=== PATIENT | female | born 1965 | race Caucasian/White ===

== ENCOUNTER 2018-04-22 10:58 | Inpatient (IN) | payer OTHER ==
[2018-04-22 11:54] VITALS: BMI 29.1
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
[2018-04-22] MEDS ORDERED: MENTHOL/PHENOL 1 EACH UD MM PRN (13:21)
[2018-04-22] MEDS ORDERED: MAGNESIUM CITRATE 300 ML BOTTLE PO PRN (13:21)
[2018-04-22] MEDS ORDERED: IBUPROFEN 400 MG TABLET (FP) PO PRN (13:21)
[2018-04-22] MEDS ORDERED: P-EPHED 60MG/TRIPROLIDI 2.5MG TABLET PO PRN (13:21)
[2018-04-22] MEDS ORDERED: ACETAMINOPHEN 325 MG TABLET (FP) PO PRN (13:21)
[2018-04-22] MEDS ORDERED: MAGNESIUM HYDROX 2400MG/30ML ORAL SUSPENSION 30 ML CUP PO PRN (13:21)
[2018-04-22] MEDS ORDERED: guaiFENesin/D-METHORPHAN HB 10 ML UNIT-DOSE CUPS PO PRN (13:21)
[2018-04-22] MEDS ORDERED: MAG HYDROX/AL HYDROX/SIMETH 30 ML UNIT-DOSE CUP PO PRN (13:21)
[2018-04-22] MEDS ORDERED: LOPERAMIDE HCL 2 MG CAPSULE PO PRN (13:21)
[2018-04-22] MEDS ORDERED: METHADONE HCL 10 MG TABLET (FOR DETOX USE ONLY) PO ONE ×2 (14:00→23:00)
--- NOTE | 2018-04-22 14:01 | CONSULT ---
[facility] Psychiatric Consult - Data Date of interview: 04/22/18 Admission source: [facility] Identifying data: This is a 52 years old female, single mother of three, unemployed, homeless, on SSD/SSI, with heroin,cocaine,and marijuana dependence, seeking detox,reporting withdrawal symptoms, this is first detox in her past medical history Substance Abuse History: THC-Marijuana, DAO-Cocaine, OPI-Opiates, OXY-Oxycodone , FEN-Fentanyl. Smoking history: Current every day smoker. Have you smoked in the past 12 months: Yes. Aproximately how many cigarettes per day: 20. Hx Chewing Tobacco Use: No. Initiated information on smoking cessation: Yes. ' Breaking Loose' booklet given: 04/22/18. - Substance & Tx. History. Hx Alcohol Use: No. Hx Substance Use: Yes. Substance Use Type: Cocaine, Heroin, Marijuana. Hx Substance Use Treatment: No. - Substances Abused. Cocaine. Route: Inhalation. Frequency: Daily. Amount used: $20-40. Age of first use: 31. Date of Last Use: 04/20/18. Marijuana/Hashish. Route: Smoking. Frequency: 3-6 times per week. Amount used: $20. Age of first use: 19. Date of Last Use: 04/20/18. Heroin. Route: Inhalation. Frequency: Daily. Amount used: 15 bags. Age of first use: 44. Date of Last Use: 04/21/18 Medical History: LBP, Left ankle fracture history, s/p rotator cuff history, Asthma Psychiatric History: Patient reports history of Bipolar disorder, reports no psychiatric hospitalization history, REPORTS TAKING PRIOR TO ADMISSION: Ambien 10mg po qhs. Flexeril 10mg po tid Physical/Sexual Abuse/Trauma History: Denies Additional Comment: THC-Marijuana, DAO-Cocaine, OPI-Opiates, OXY-Oxycodone, FEN- Fentanyl. Ambien 10mg po qhs. Flexeril 10mg po tid Mental Status Exam - Mental Status Exam Alert and Oriented to: Person Cognitive Function: Fair Patient Appearance: Well Groomed Mood: Anxious Affect: Labile Patient Behavior: Guarded, Talkative Speech Pattern: Appropriate Voice Loudness: Moderately Loud Thought Process: Goal Oriented Thought Disorder: Being Controlled Hallucinations: Denies Suicidal Ideation: Denies Homicidal Ideation: Denies Insight/Judgement: Fair Sleep: Difficulty falling asleep Appetite: Weight gain Muscle strength/Tone: Normal Gait/Station: Normal Additional Comments: Ambien 10mg po qhs. Flexeril 10mg po tid Psychiatric Findings - Problem List ([place] 1, 2,3) (1) Asthma Current Visit: Yes Status: Acute (2) Bipolar disorder Current Visit: Yes Status: Acute (3) Cannabis dependence Current Visit: Yes Status: Acute (4) Cocaine dependence Current Visit: Yes Status: Acute (5) H/O rotator cuff surgery Current Visit: Yes Status: Acute (6) History of fracture of left ankle Current Visit: Yes Status: Acute (7) Insomnia Current Visit: Yes Status: Acute (8) Low back pain Current Visit: Yes Status: Acute (9) Nicotine dependence Current Visit: Yes Status: Acute (10) Opioid dependence with withdrawal Current Visit: Yes Status: Acute - Initial Treatment Plan Initial Treatment Plan: Ambien 10mg po qhs. Flexeril 10mg po tid
--- NOTE | 2018-04-22 15:37 | EKG ---
Test Reason : Blood Pressure : / mmHG Vent. Rate : 064 BPM Atrial Rate : 064 BPM P-R Int : 140 ms QRS Dur : 084 ms QT Int : 434 ms P-R-T Axes : 018 064 032 degrees QTc Int : 447 ms NORMAL SINUS RHYTHM WITH SINUS ARRHYTHMIA NORMAL ECG NO PREVIOUS ECGS AVAILABLE Confirmed by SATHISH LUI MD ([id number]) on 04/22/2018 3:36:55 PM Referred By: Confirmed By:SATHISH LUI MD
[2018-04-22] MEDS: diazePAM 5 MG TABLET PO PRN ×2 (15:38→21:20)
[2018-04-22] MEDS: NICOTINE 21 MG/24 HOURS TOPICAL PATCH TD SCH (15:39)
[2018-04-22] MEDS ORDERED: diphenhydrAMINE HCL 25 MG CAPSULE (FP) PO PRN (16:00)
[2018-04-22] MEDS: hydrOXYzine PAMOATE 25 MG CAPSULE (FP) PO PRN (17:28)
[2018-04-22] MEDS: HALOPERIDOL 1 MG TABLET (FP) PO PRN ×2 (17:28→21:20)
[2018-04-22] MEDS: THIAMINE HCL 100 MG TABLET (FP) PO SCH (21:20)
[2018-04-22] MEDS: ZOLPIDEM TARTRATE 10 MG TABLET (PARK CARE ONLY) PO PRN (21:21)
[2018-04-22] MEDS: CYCLOBENZAPRINE HCL 10 MG TABLET (FP) PO PRN (21:21)
[2018-04-22] MEDS ORDERED: MELATONIN 5 MG TABLETS PO PRN (22:00)
[2018-04-22] MEDS ORDERED: CYCLOBENZAPRINE HCL 5 MG TABLET PO SCH (22:00)
[2018-04-23] MEDS: CYCLOBENZAPRINE HCL 10 MG TABLET (FP) PO PRN ×2 (08:38→21:57)
[2018-04-23] MEDS: diazePAM 5 MG TABLET PO PRN ×2 (08:38→18:29)
[2018-04-23] MEDS: hydrOXYzine PAMOATE 25 MG CAPSULE (FP) PO PRN ×3 (08:39→21:58)
[2018-04-23] MEDS: HALOPERIDOL 1 MG TABLET (FP) PO PRN ×3 (08:39→21:58)
--- NOTE | 2018-04-23 09:46 | PN ---
[facility] COWS - Scale Resting Pulse: 0= [place] 80 or Below Sweatin=Flushed/Facial Moisture Restless Observation: 1= Difficult to Sit Still Pupil Size: 0= Normal to Room Light Bone or Joint Aches: 2= Severe Diffuse Aches Runny Nose/ Eye Tearin= Nasal Congestion GI Upset > 30mins: 2= Nausea/Diarrhea Tremor Observation of Outstretched Hands: 2= Slight Tremor Visible Yawning Observation: 1= 1-2x During Session Anxiety or Irritability: 2=Irritable/Anxious Goose Flesh Skin: 3=Piloerection COWS Score: 16 [facility] Progress Note (SOAP) Subjective: shakes sweats agitation diarrhea body aches irritable Objective: 04/23/18 09:46 Vital Signs Temperature 96.1 F L 04/23/18 07:09 Pulse Rate 56 L 04/23/18 07:09 Respiratory Rate 18 04/23/18 07:09 Blood Pressure 124/62 04/23/18 07:09 O2 Sat by Pulse Oximetry (%) Laboratory Tests 04/22/18 13:30 HIV 1&2 Antibody Screen Negative HIV P24 Antigen Negative rest of labs pending aaox3 ambulating no acute distress Assessment: 04/23/18 09:46 withdrawal sx Plan: continue detox increase fluids immodium prn labs pending
[2018-04-23] MEDS ORDERED: METHADONE HCL 10 MG TABLET (FOR DETOX USE ONLY) PO ONE (10:00)
[2018-04-23] MEDS ORDERED: PRENATAL VITAMINS W/ FOLIC ACID TABLET (FP) PO SCH (10:00)
[2018-04-23] MEDS: NICOTINE 21 MG/24 HOURS TOPICAL PATCH TD SCH (10:43)
[2018-04-23 11:11] LABS: HEMATOCRIT 45.3 % (32.4-45.2); HEMOGLOBIN 14.7 GM/dL (10.7-15.3); MCH 28.7 pg (25.7-33.7); MCHC 32.4 g/dl (32.0-36.0); MEAN CELL VOLUME 88.6 fl (80-96); MEAN PLT VOLUME 9.1 fl (7.5-11.1); PLATELET COUNT 190 K/MM3 (134-434); RBC 5.11 M/mm3 (3.60-5.2); RDW 13.8 % (11.6-15.6)
[2018-04-23 11:30] LABS: ALBUMIN 3.5 g/dl (3.4-5.0); ALK PHOS 94 U/L (45-117); ANION GAP 5 MMOL/L (8-16); BILIRUBIN,TOTAL 0.5 mg/dL (0.2-1); BLOOD UREA NITROGEN 22 mg/dL (7-18); CALCIUM 8.7 mg/dL (8.5-10.1); CHLORIDE 106 mmol/L (98-107); CO2 28 mmol/L (21-32); CREATININE 0.8 mg/dL (0.55-1.3); GLUCOSE,RANDOM 155 mg/dL (74-106); POTASSIUM 4.6 mmol/L (3.5-5.1); SGOT/AST 21 U/L (15-37); SGPT/ALT 18 U/L (13-61); SODIUM 139 mmol/L (136-145); TOT PROT 7.3 g/dl (6.4-8.2)
[2018-04-23] MEDS: ZOLPIDEM TARTRATE 10 MG TABLET (PARK CARE ONLY) PO PRN (21:57)
[2018-04-23] MEDS: THIAMINE HCL 100 MG TABLET (FP) PO SCH (21:57)
[2018-04-24] MEDS: diazePAM 5 MG TABLET PO PRN (07:07)
[2018-04-24 07:26] VITALS: BP 137/85; PULSE 65; TEMP 96.8
--- NOTE | 2018-04-24 08:17 | PN ---
GEN Progress Note Note: patient did not want to complete treatment,decline to give the reason,all attempts to convince patient to stay with no avail, risk of withdrawal and relapse explain to patient and she understood,advise to go to emergency room if medical emergency, patient signed release rainer
--- NOTE | 2018-04-24 08:18 | DS ---
[facility] Detox Discharge Summary Admission Date: 04/22/18 Discharge Date: 04/24/18 - History Present History: Cannabis Dependence, Cocaine Dependence, Opioid Dependence Additional Comments: patient did not want to complete treatment,declined to give reason,all attempts to convince patient to stay with no avail, risk of withdrawal and relapse explain to patient and understood,advise to go to emergency room if medical emergency, patient signed release ama,advise diet modification for elevation of glucose, and follow up with patient medical provider Pertinent Past History: low back pain asthma bipolar disorder insomnia old fx of left ankle - Physical Exam Results Vital Signs: Vital Signs Temperature 96.8 F L 04/24/18 07:25 Pulse Rate 65 04/24/18 07:25 Respiratory Rate 18 04/24/18 07:25 Blood Pressure 137/85 04/24/18 07:25 O2 Sat by Pulse Oximetry (%) Pertinent Admission Physical Exam Findings: withdrawal signs and symptom Laboratory Last Values WBC 9.0 K/mm3 (4.0-10.0) 04/23/18 06:00 RBC 5.11 M/mm3 (3.60-5.2) 04/23/18 06:00 Hgb 14.7 GM/dL (10.7-15.3) 04/23/18 06:00 Hct 45.3 % (32.4-45.2) H 04/23/18 06:00 MCV 88.6 fl (80-96) 04/23/18 06:00 MCH 28.7 pg (25.7-33.7) 04/23/18 06:00 MCHC 32.4 g/dl (32.0-36.0) 04/23/18 06:00 RDW 13.8 % (11.6-15.6) 04/23/18 06:00 Plt Count 190 K/MM3 (134-434) 04/23/18 06:00 MPV 9.1 fl (7.5-11.1) 04/23/18 06:00 Sodium 139 mmol/L (136-145) 04/23/18 06:00 Potassium 4.6 mmol/L (3.5-5.1) 04/23/18 06:00 Chloride 106 mmol/L (98-107) 04/23/18 06:00 Carbon Dioxide 28 mmol/L (21-32) 04/23/18 06:00 Anion Gap 5 MMOL/L (8-16) L 04/23/18 06:00 BUN 22 mg/dL (7-18) H 04/23/18 06:00 Creatinine 0.8 mg/dL (0.55-1.3) 04/23/18 06:00 Creat Clearance w eGFR > 60 (>60) 04/23/18 06:00 Random Glucose 155 mg/dL (74-106) H 04/23/18 06:00 Calcium 8.7 mg/dL (8.5-10.1) 04/23/18 06:00 Total Bilirubin 0.5 mg/dL (0.2-1) 04/23/18 06:00 AST 21 U/L (15-37) 04/23/18 06:00 ALT 18 U/L (13-61) 04/23/18 06:00 Alkaline Phosphatase 94 U/L (45-117) 04/23/18 06:00 Total Protein 7.3 g/dl (6.4-8.2) 04/23/18 06:00 Albumin 3.5 g/dl (3.4-5.0) 04/23/18 06:00 RPR Titer Nonreactive (NONREACTIVE) 04/23/18 06:00 HIV 1&2 Antibody Screen Negative 04/22/18 13:30 HIV P24 Antigen Negative 04/22/18 13:30 - Medication Discharge Medications: Ambulatory Orders Cyclobenzaprine HCl [Flexeril -] 10 mg PO TID PRN #60 tablet 04/22/18 Cyclobenzaprine HCl [Flexeril 10 mg] 10 mg PO TID 04/22/18 Diazepam [Valium] 10 mg PO TID 04/22/18 Zolpidem Tartrate [Ambien] 10 mg PO HS 04/22/18 - Diagnosis (1) Opioid dependence with withdrawal Current Visit: Yes Status: Acute (2) Cocaine dependence Current Visit: Yes Status: Acute (3) Cannabis dependence Current Visit: Yes Status: Acute (4) Low back pain Current Visit: Yes Status: Acute (5) Bipolar disorder Current Visit: Yes Status: Acute (6) Insomnia Current Visit: Yes Status: Acute (7) History of fracture of left ankle Current Visit: Yes Status: Acute (8) H/O rotator cuff surgery Current Visit: Yes Status: Acute (9) Asthma Current Visit: Yes Status: Acute - AMA Did Patient Leave Against Medical Advice: Yes
[2018-04-24] MEDS ORDERED: METHADONE HCL 5 MG TABLET (FOR DETOX USE ONLY) PO ONE (10:00)
[2018-04-25] MEDS ORDERED: METHADONE HCL 5 MG TABLET (FOR DETOX USE ONLY) PO ONE (10:00)
[2018-04-26] MEDS ORDERED: METHADONE HCL 10 MG TABLET (FOR DETOX USE ONLY) PO ONE (10:00)
[2018-04-27] MEDS ORDERED: METHADONE HCL 5 MG TABLET (FOR DETOX USE ONLY) PO ONE (06:00)
== END 2018-04-24 08:25 | disposition left against medical advice (07) | DRG 770 ==
LOC: YASAS 10:58 → Y6N 13:10
PROC: HZ2ZZZZ Detoxification Services for Substance Abuse Treatment (ICD-10-PCS; principal; 2018-04-22)
DX: F11.23 Opioid dependence with withdrawal (principal); F14.20 Cocaine dependence, uncomplicated; F12.20 Cannabis dependence, uncomplicated; F17.210 Nicotine dependence, cigarettes, uncomplicated; F31.9 Bipolar disorder, unspecified; M54.5 Low back pain; G47.00 Insomnia, unspecified; J45.909 Unspecified asthma, uncomplicated; R73.9 Hyperglycemia, unspecified
CPT/HCPCS: 36415; 80053; 81003; 85027; 86593; 87389; 93005; 93010

== ENCOUNTER 2018-06-13 08:04 | Inpatient (IN) | payer OTHER ==
[2018-06-13 08:51] VITALS: BMI 32.2
--- NOTE | 2018-06-13 09:30 | HP ---
COWS - Scale Resting Pulse: 1= [place] 81-100 Sweatin= Chills/Flushing Restless Observation: 1= Difficult to Sit Still Pupil Size: 1= Pupils >than Normal Bone or Joint Aches: 2= Severe Diffuse Aches Runny Nose/ Eye Tearin= Runny Nose/Eyes GI Upset > 30mins: 2= Nausea/Diarrhea Tremor Observation: 2= Slight Tremor Visible Yawning Observation: 1= 1-2x During Session Anxiety or Irritability: 2=Irritable/Anxious Goose Flesh Skin: 0=Smooth Skin COWS Score: 15 CIWA Score Nausea/Vomitin Muscle Tremors: 2 Anxiety: 2 Agitation: 2 Paroxysmal Sweats: 1-Minimal Palms Moist Orientation: 0-Oriented Tacttile Disturbances: 1-Very Mild Itch/Numbness Auditory Disturbances: 1-Very Mild Visual Disturbances: 0-None Headache: 2-Mild CIWA-Ar Total Score: 13 - Admission Criteria [facility] Guidelines: Admission for Medically Managed Detox: Requires at least one of the followin. CIWA greater than 12 2. Seizures within the past 24 hours 3. Delirium tremens within the past 24 hours 4. Hallucinations within the past 24 hours 5. Acute intervention needed for co occurring medical disorder 6. Acute intervention needed for co occurring psychiatric disorder 7. Severe withdrawal that cannot be handled at a lower level of care (continued vomiting, continued diarrhea, abnormal vital signs) requiring intravenous medication and/or fluids 8. Patient presents the following: CIWA greater than 12 Admission Criteria Met: Admission criteria met Admission ROS [facility] - [facility] Chief Complaint: i need help to stop using heroin,alcohol,cocaine and marijuana Allergies/Adverse Reactions: Allergies Allergy/AdvReac Type Severity Reaction Status Date / Time No Known Allergies Allergy Verified 06/13/18 08:47 History of Present Illness: this 52 years old female with heroin ,alcohol,cocaine and marijuana dependence, seeking detox,withdrawal symptom,last detox 04/22/18 to 04/24/18 not completed arthritis both knees,hips edema both legs for 5 days nicotine dependence no significant period of sobriety bipolar disorder ,insomnia history of asthma Exam Limitations: No Limitations - Ebola screening Have you traveled outside of the country in the last 21 days: No Have you had contact with anyone from an Ebola affected area: No Have you been sick,other than usual withdrawal symptoms: No Do you have a fever: No - Review of Systems Constitutional: Chills, Loss of Appetite, Malaise, Night Sweats, Changes in sleep, Weakness EENT: reports: Tearing, Nose Congestion Respiratory: reports: No Symptoms reported Cardiac: reports: No Symptoms Reported GI: reports: Diarrhea, Nausea, Abdominal cramping : reports: No Symptoms Reported Musculoskeletal: reports: Back Pain, Muscle Pain Integumentary: reports: Dryness Neuro: reports: Headache, Tremors Endocrine: reports: No Symptoms Reported Hematology: reports: No Symptoms Reported Psychiatric: reports: No Sypmtoms Reported, Judgement Intact, Mood/Affect Appropiate, Orientated x3, other (bipolar disoder) Patient History - Patient Medical History Hx Anemia: No Hx Asthma: Yes (on albuterol inhaler in the past) Hx Chronic Obstructive Pulmonary Disease (COPD): No Hx Cancer: No Hx Cardiac Disorders: No Hx Congestive Heart Failure: No Hx Hypertension: No Hx Hypercholesterolemia: No Hx Pacemaker: No HX Cerebrovascular Accident: No Hx Seizures: No Hx Dementia: No Hx Diabetes: No Hx Gastrointestinal Disorders: Yes (Acid reflux takes baking sode) Hx Liver Disease: No Hx Genitourinary Disorders: No Hx Sexually Transmitted Disorders: No Hx Renal Disease (ESRD): No Hx Thyroid Disease: No Hx Human Immunodeficiency Virus (HIV): No (last 2016 negative) Hx Hepatitis C: No Hx Depression: Yes (anxiety,insomnia) Hx Suicide Attempt: No Hx Bipolar Disorder: Yes Hx Schizophrenia: No Other Medical History: no suicidal,no suicidal - Patient Surgical History Past Surgical History: Yes Hx Neurologic Surgery: No Hx Cataract Extraction: No Hx Cardiac Surgery: No Hx Lung Surgery: No Hx Breast Surgery: No Hx Breast Biopsy: No Hx Abdominal Surgery: No Hx Appendectomy: No Hx Cholecystectomy: No Hx Genitourinary Surgery: No Hx Section: No Hx Orthopedic Surgery: Yes (L shoulder sx in 2014 L ankle sx in 2010) Anesthesia Reaction: No - PPD History Previous Implant?: Yes Documented Results: Negative w/proof Implanted On Prior R Admission?: Yes Date: 04/24/18 Results: not reading PPD to be Administered?: Yes - Reproductive History Last Menstrual Period: 05/16/11 Patient : No - Smoking Cessation Smoking history: Current every day smoker Have you smoked in the past 12 months: Yes Aproximately how many cigarettes per day: 20 Hx Chewing Tobacco Use: No Initiated information on smoking cessation: Yes 'Breaking Loose' booklet given: 06/17/18 - Substances Abused Heroin Route: Inhalation Frequency: Daily Amount used: 1 BUNDLE Age of first use: 22 Date of Last Use: 06/12/18 Crack Route: Smoking Frequency: Daily Amount used: $60-$70 Age of first use: 27 Date of Last Use: 06/12/18 Alcohol Route: Oral Amount used: 6 12OZ BOTTLES OF BEER Age of first use: 19 Date of Last Use: 06/10/18 MARIJUANA Route: Smoking Frequency: Daily Amount used: $10 Age of first use: 19 Date of Last Use: 06/06/18 Family Disease History - Family Disease History Family Disease History: Other: Father (alcohol), Mother (alcohol) Admission Physical Exam S - Vital Signs Vital Signs: Vital Signs - 24 hr 06/13/18 06/13/18 08:43 08:48 Temperature 97.8 F 97.8 F Pulse Rate 81 81 Respiratory 18 18 Rate Blood Pressure 122/83 122/83 - Physical General Appearance: Yes: Moderate Distress, Tremorous, Irritable, Sweating, Anxious HEENTM: Yes: Normal ENT Inspection, MARIBEL, Pharynx Normal Respiratory: Yes: Lungs Clear, Normal Breath Sounds, No Respiratory Distress Neck: Yes: Within Normal Limits, Supple, Trachea in good position Breast: Yes: Breast Exam Deferred Cardiology: Yes: Within Normal Limits, Regular Rhythm, Regular Rate, S1, S2 Abdominal: Yes: Within Normal Limits, Normal Bowel Sounds, Non Tender, Soft Genitourinary: Yes: Within Normal Limits Back: Yes: Muscle Spasm Musculoskeletal: Yes: Back pain, Muscle Pain Extremities: Yes: Tremors, Other (edema both legs) Neurological: Yes: laser cutter II-XII NML intact, Fully Oriented, Alert, Motor Strength 5/5 Integumentary: Yes: Dry Lymphatic: Yes: Within Normal Limits - Diagnostic (1) Opioid dependence with withdrawal Status: Acute (2) Alcohol dependence with uncomplicated withdrawal Status: Acute (3) Asthma Status: Chronic Qualifiers: Asthma severity: mild Asthma persistence: unspecified Asthma complication type: uncomplicated Qualified Code(s): J45.909 - Unspecified asthma, uncomplicated (4) Bipolar disorder Status: Chronic (5) Cannabis dependence Status: Acute (6) Cocaine dependence Status: Acute Qualifiers: Substance use status: uncomplicated Qualified Code(s): F14.20 - Cocaine dependence, uncomplicated (7) H/O rotator cuff surgery Status: Acute (8) History of fracture of left ankle Status: Acute (9) Edema of both legs Status: Acute Cleared for Admission [facility] - Detox or Rehab [facility] Level of Care: Medically Managed Detox Regimen/Protocol: Methadone/Librium [facility] Breath Alcohol Content Breath Alcohol Content: 0 Urine Pregancy Test - Result Urine Test Results: Negative- NO Line Present Urine Drug Screen - Results Drug Screen Negative: No Urine Drug Screen Results: DAO-Cocaine, OPI-Opiates, BAR-Barbiturates, BZO- Benzodiazepines, MTD-Methadone, OXY-Oxycodone, FEN-Fentanyl
[2018-06-13] MEDS ORDERED: MAGNESIUM HYDROX 2400MG/30ML ORAL SUSPENSION 30 ML CUP PO PRN (09:46)
[2018-06-13] MEDS ORDERED: chlordiazePOXIDE HCL 25 MG CAPSULE PO PRN (09:46)
[2018-06-13] MEDS ORDERED: NICOTINE POLACRILEX 2 MG GUM BUC PRN (09:46)
[2018-06-13] MEDS ORDERED: MAG HYDROX/AL HYDROX/SIMETH 30 ML UNIT-DOSE CUP PO PRN (09:46)
[2018-06-13] MEDS ORDERED: MAGNESIUM CITRATE 300 ML BOTTLE PO PRN (09:46)
[2018-06-13] MEDS ORDERED: guaiFENesin/D-METHORPHAN HB 10 ML UNIT-DOSE CUPS PO PRN (09:46)
[2018-06-13] MEDS ORDERED: LOPERAMIDE HCL 2 MG CAPSULE PO PRN (09:46)
[2018-06-13] MEDS ORDERED: P-EPHED 60MG/TRIPROLIDI 2.5MG TABLET PO PRN (09:46)
[2018-06-13] MEDS ORDERED: MENTHOL/PHENOL 1 EACH UD MM PRN (09:46)
[2018-06-13] MEDS ORDERED: ACETAMINOPHEN 325 MG TABLET (FP) PO PRN (09:46)
[2018-06-13] MEDS ORDERED: METHADONE HCL 10 MG TABLET (FOR DETOX USE ONLY) PO ONE ×2 (10:50→23:00)
[2018-06-13] MEDS: chlordiazePOXIDE HCL 25 MG CAPSULE PO SCH ×3 (11:21→22:42)
[2018-06-13] MEDS: FUROSEMIDE 40 MG TABLET (FP) PO SCH (11:21)
[2018-06-13] MEDS: NICOTINE 21 MG/24 HOURS TOPICAL PATCH TD SCH (11:21)
[2018-06-13] MEDS: PRENATAL VITAMINS W/ FOLIC ACID TABLET (FP) PO SCH (11:23)
--- NOTE | 2018-06-13 15:55 | CONSULT ---
[facility] Psychiatric Consult - Data Date of interview: 06/13/18 Admission source: [facility] Identifying data: Patient is a 52 year old single female, mother of three, unemployed, homeless, and is supported by [facility]. [facility]. Patient admitted to for alcohol, cocaine, opiate, and marijuana dependence. Substance Abuse History: Smoking Cessation. Smoking history: Current every day smoker. Have you smoked in the past 12 months: Yes. Aproximately how many cigarettes per day: 20. Hx Chewing Tobacco Use: No. - Substances Abused. Heroin. Route: Inhalation. Frequency: Daily. Amount used: 1 BUNDLE. Age of first use: 22. Date of Last Use: 06/12/18. Crack. Route: Smoking. Frequency: Daily. Amount used: $60-$70. Age of first use: 27. Date of Last Use: 06/12/18. Alcohol. Route: Oral. Amount used: 6 12OZ BOTTLES OF BEER. Age of first use: 19. Date of Last Use: 06/10/18. MARIJUANA. Route: Smoking. Frequency: Daily. Amount used: $10. Age of first use: 19. Date of Last Use: 06/06/18 Medical History: Asthma, acid reflux, L shoulder sx in 2014 L ankle sx in 2010 Psychiatric History: Patient denies h/o psychiatric hospitalizations. She reports an unclear history of outpatient psychiatric care "years ago." Reports h /o accepting vistaril, valium and remeron. States she last took psychotropic medications 1-2 years ago. She denies h/o suicide attempt. Physical/Sexual Abuse/Trauma History: denies. Mental Status Exam - Mental Status Exam Alert and Oriented to: Time, Place, Person Cognitive Function: Good Patient Appearance: Well Groomed Mood: Euthymic Affect: Mood Congruent Patient Behavior: Fatigued, Cooperative Speech Pattern: Appropriate Voice Loudness: Moderately Soft/Quiet Thought Process: Intact, Goal Oriented Thought Disorder: Not Present Hallucinations: Denies Suicidal Ideation: Denies Homicidal Ideation: Denies Insight/Judgement: Poor Sleep: Fair Appetite: Fair Muscle strength/Tone: Normal Gait/Station: Normal Psychiatric Findings - Problem List (Leslie 1, 2,3) (1) Substance induced mood disorder Current Visit: Yes Status: Suspected (2) Alcohol dependence with uncomplicated withdrawal Current Visit: Yes Status: Acute (3) Cocaine dependence Current Visit: Yes Status: Chronic (4) Opioid dependence with withdrawal Current Visit: Yes Status: Acute - Initial Treatment Plan Initial Treatment Plan: Psychoeducation provided. Detoxification in progress. Pt. made aware of melatonin 5mg. Observation.
[2018-06-13 18:44] LABS: URINE APPEARANCE SLCLOUDY; URINE BILIRUBIN NEGATIVE (<2.0 mg/dL); URINE COLOR AMBER; URINE GLUCOSE (UA) NEGATIVE (NEGATIVE); URINE KETONE NEGATIVE (NEGATIVE); URINE LEUK ESTERASE 1+ (NEGATIVE); URINE NITRITE POSITIVE (NEGATIVE); URINE PROTEIN 1+ (NEGATIVE); URINE UROBILINOGEN NEGATIVE mg/dL (0.2-1.0)
[2018-06-13 19:05] LABS: CALCIUM OXALATE CRYSTALS FEW /hpf (NONE SEEN); EPI CELLS RARE /HPF (FEW); URINE BACTERIA MANY /hpf (NONE SEEN); URINE MUCUS FEW
[2018-06-13 19:08] LABS: AMORP URATES 1+ /hpf (NONE SEEN)
[2018-06-13] MEDS: THIAMINE HCL 100 MG TABLET (FP) PO SCH (22:42)
[2018-06-13] MEDS: MELATONIN 5 MG TABLETS PO PRN (22:44)
[2018-06-14] MEDS: chlordiazePOXIDE HCL 25 MG CAPSULE PO SCH ×4 (05:51→22:18)
[2018-06-14] MEDS ORDERED: METHADONE HCL 10 MG TABLET (FOR DETOX USE ONLY) PO SCH (10:00)
[2018-06-14 10:25] LABS: HEMATOCRIT 40.4 % (32.4-45.2); HEMOGLOBIN 13.9 GM/dL (10.7-15.3); MCH 30.3 pg (25.7-33.7); MCHC 34.5 g/dl (32.0-36.0); MEAN CELL VOLUME 87.8 fl (80-96); MEAN PLT VOLUME 8.8 fl (7.5-11.1); PLATELET COUNT 252 K/MM3 (134-434); RDW 13.7 % (11.6-15.6); WHITE BLOOD COUNT 8.2 K/mm3 (4.0-10.0)
[2018-06-14] MEDS: NICOTINE 21 MG/24 HOURS TOPICAL PATCH TD SCH (10:29)
[2018-06-14] MEDS: PRENATAL VITAMINS W/ FOLIC ACID TABLET (FP) PO SCH (10:30)
[2018-06-14] MEDS: FUROSEMIDE 40 MG TABLET (FP) PO SCH (10:31)
[2018-06-14 11:04] LABS: ALBUMIN 3.4 g/dl (3.4-5.0); ALK PHOS 92 U/L (45-117); ANION GAP 8 MMOL/L (8-16); BILIRUBIN,TOTAL 0.2 mg/dL (0.2-1); BLOOD UREA NITROGEN 17 mg/dL (7-18); CHLORIDE 109 mmol/L (98-107); CO2 26 mmol/L (21-32); CREATININE 0.7 mg/dL (0.55-1.3); GLUCOSE,RANDOM 80 mg/dL (74-106); SGOT/AST 20 U/L (15-37); SGPT/ALT 25 U/L (13-61); SODIUM 143 mmol/L (136-145); TOT PROT 7.1 g/dl (6.4-8.2)
[2018-06-14] MEDS: IBUPROFEN 400 MG TABLET (FP) PO PRN (11:59)
[2018-06-14] MEDS ORDERED: PNEUMOCOCCAL 23 VACCINE 0.5 ML VIAL IM ONE (12:00)
[2018-06-14] MEDS ORDERED: PNEUMOC 13-VAL CONJ-DIP CRM/PF 0.5 ML DISP.SYRIN IM ONE (12:00)
[2018-06-14] MEDS: hydrOXYzine PAMOATE 50 MG CAPSULE (FP) PO PRN (12:15)
[2018-06-14] MEDS: CYCLOBENZAPRINE HCL 10 MG TABLET (FP) PO PRN ×2 (12:15→22:18)
--- NOTE | 2018-06-14 15:56 | PN ---
S CIWA - CIWA Score Nausea/Vomitin Muscle Tremors: 4-Moderate,w/Arms Extend Anxiety: 4-Mod. Anxious/Guarded Agitation: 2 Paroxysmal Sweats: 3 Orientation: 0-Oriented Tacttile Disturbances: 1-Very Mild Itch/Numbness Auditory Disturbances: 0-None Visual Disturbances: 0-None Headache: 1-Very Mild CIWA-Ar Total Score: 17 BHS COWS - Scale Resting Pulse: 0= [place] 80 or Below Sweatin= Chills/Flushing Restless Observation: 3= Extraneous Movement Pupil Size: 0= Normal to Room Light Bone or Joint Aches: 2= Severe Diffuse Aches Runny Nose/ Eye Tearin= Runny Nose/Eyes GI Upset > 30mins: 3= Vomiting/Diarrhea Tremor Observation of Outstretched Hands: 2= Slight Tremor Visible Yawning Observation: 0= None Anxiety or Irritability: 2=Irritable/Anxious Goose Flesh Skin: 0=Smooth Skin COWS Score: 15 S Progress Note (SOAP) Subjective: Tremor, chills, sweating, nausea, interrupted sleep, back pain (chronic), agitated Objective: 06/14/18 15:52 Last Vital Signs Temp Pulse Resp BP Pulse Ox 98.4 F 80 16 123/79 06/14/18 14:13 06/14/18 14:13 06/14/18 14:13 06/14/18 14:13 Laboratory Tests 06/13/18 06/14/18 06/14/18 17:30 05:55 05:55 WBC 8.2 RBC 4.60 Hgb 13.9 Hct 40.4 MCV 87.8 MCH 30.3 MCHC 34.5 RDW 13.7 Plt Count 252 D MPV 8.8 Sodium 143 Potassium 4.0 Chloride 109 H Carbon Dioxide 26 Anion Gap 8 BUN 17 Creatinine 0.7 Creat Clearance w eGFR > 60 Random Glucose 80 Calcium 9.0 Total Bilirubin 0.2 AST 20 ALT 25 Alkaline Phosphatase 92 Total Protein 7.1 Albumin 3.4 Urine Color [place] Urine Appearance Slcloudy Urine pH 5.0 Ur Specific [place] 1.027 Urine Protein 1+ H Urine Glucose (UA) Negative Urine Ketones Negative Urine Blood 1+ H Urine Nitrite Positive Urine Bilirubin Negative Urine Urobilinogen Negative Ur Leukocyte Esterase 1+ H Urine WBC (Auto) 1 Urine RBC (Auto) <1 Ur Epithelial Cells Rare Calcium Oxalate Crystal Few Amorphous Urates 1+ Urine Bacteria Many Urine Mucus Few Labs reviewed: UTI noted Assessment: 06/14/18 15:54 Withdrawal symptoms Noted with acute UTI Plan: Continue detox Acute UTI: encouraged PO water intake, send urine C&S, start levaquin 500mg PO daily x 3 days
[2018-06-14] MEDS: THIAMINE HCL 100 MG TABLET (FP) PO SCH (22:18)
[2018-06-14] MEDS: MELATONIN 5 MG TABLETS PO PRN (22:18)
[2018-06-15] MEDS: IBUPROFEN 400 MG TABLET (FP) PO PRN ×2 (02:40→10:38)
[2018-06-15] MEDS: hydrOXYzine PAMOATE 50 MG CAPSULE (FP) PO PRN (02:40)
[2018-06-15] MEDS ORDERED: LIDOCAINE 5% TOPICAL PATCH TP SCH (06:00)
[2018-06-15] MEDS: chlordiazePOXIDE HCL 25 MG CAPSULE PO SCH (07:36)
[2018-06-15] MEDS: CYCLOBENZAPRINE HCL 10 MG TABLET (FP) PO PRN (07:47)
[2018-06-15 07:54] VITALS: TEMP 97.9
[2018-06-15 09:53] VITALS: BP 123/76; PULSE 70
[2018-06-15] MEDS ORDERED: METHADONE HCL 5 MG TABLET (FOR DETOX USE ONLY) PO SCH (10:00)
[2018-06-15] MEDS: PRENATAL VITAMINS W/ FOLIC ACID TABLET (FP) PO SCH (10:33)
[2018-06-15] MEDS: FUROSEMIDE 40 MG TABLET (FP) PO SCH (10:34)
[2018-06-15] MEDS: NICOTINE 21 MG/24 HOURS TOPICAL PATCH TD SCH (10:35)
[2018-06-15] MEDS ORDERED: IBUPROFEN 600 MG TABLET (FP) PO PRN (10:50)
[2018-06-15] MEDS ORDERED: chlordiazePOXIDE 5 MG CAPSULE PO SCH (11:00)
[2018-06-15] MEDS ORDERED: CYCLOBENZAPRINE HCL 10 MG TABLET (FP) PO SCH (11:00)
--- NOTE | 2018-06-15 14:52 | PN ---
BHS Progress Note Note: PT REPORTS TO NURSE SHE NO LONGER WANTS TO CONTINUE WITH DETOX. PT GOT AGITATED AND CURSING OUT AND WANTS TO LEAVE(PLEASE SEE NURSE'S NOTES). ALL EFFORTS TO ENCOURAGE PT TO STAY WAS UNSUCCESSFUL. Vital Signs 06/15/18 06/15/18 07:54 09:53 Temperature 97.9 F 97.9 F Pulse Rate 69 70 Respiratory 18 18 Rate Blood Pressure 122/76 123/76
--- NOTE | 2018-06-15 14:53 | DS ---
[facility] Detox Discharge Summary Admission Date: 06/13/18 Discharge Date: 06/15/18 - History Present History: Alcohol Dependence, Cannabis Dependence, Cocaine Dependence Additional Comments: PT SIGNED OUT AMA. Pertinent Past History: PLEASE SEE DX BELOW - Physical Exam Results Vital Signs: Vital Signs Temperature 97.9 F 06/15/18 09:53 Pulse Rate 70 06/15/18 09:53 Respiratory Rate 18 06/15/18 09:53 Blood Pressure 123/76 06/15/18 09:53 O2 Sat by Pulse Oximetry (%) Pertinent Admission Physical Exam Findings: WITHDRAWAL SX Laboratory Tests 06/13/18 06/14/18 06/14/18 17:30 05:55 05:55 WBC 8.2 RBC 4.60 Hgb 13.9 Hct 40.4 MCV 87.8 MCH 30.3 MCHC 34.5 RDW 13.7 Plt Count 252 D MPV 8.8 Sodium 143 Potassium 4.0 Chloride 109 H Carbon Dioxide 26 Anion Gap 8 BUN 17 Creatinine 0.7 Creat Clearance w eGFR > 60 Random Glucose 80 Calcium 9.0 Total Bilirubin 0.2 AST 20 ALT 25 Alkaline Phosphatase 92 Total Protein 7.1 Albumin 3.4 Urine Color [place] Urine Appearance Slcloudy Urine pH 5.0 Ur Specific [place] 1.027 Urine Protein 1+ H Urine Glucose (UA) Negative Urine Ketones Negative Urine Blood 1+ H Urine Nitrite Positive Urine Bilirubin Negative Urine Urobilinogen Negative Ur Leukocyte Esterase 1+ H Urine WBC (Auto) 1 Urine RBC (Auto) <1 Ur Epithelial Cells Rare Calcium Oxalate Crystal Few Amorphous Urates 1+ Urine Bacteria Many Urine Mucus Few RPR Titer 06/14/18 05:55 WBC RBC Hgb Hct MCV MCH MCHC RDW Plt Count MPV Sodium Potassium Chloride Carbon Dioxide Anion Gap BUN Creatinine Creat Clearance w eGFR Random Glucose Calcium Total Bilirubin AST ALT Alkaline Phosphatase Total Protein Albumin Urine Color Urine Appearance Urine pH Ur Specific [place] Urine Protein Urine Glucose (UA) Urine Ketones Urine Blood Urine Nitrite Urine Bilirubin Urine Urobilinogen Ur Leukocyte Esterase Urine WBC (Auto) Urine RBC (Auto) Ur Epithelial Cells Calcium Oxalate Crystal Amorphous Urates Urine Bacteria Urine Mucus RPR Titer Nonreactive - Treatment Hospital Course: Discharged Condition Good - Medication Discharge Medications: Ambulatory Orders Cyclobenzaprine HCl [Flexeril -] 10 mg PO TID PRN #60 tablet 04/22/18 Cyclobenzaprine HCl [Flexeril 10 mg] 10 mg PO TID 04/22/18 Diazepam [Valium] 10 mg PO TID 04/22/18 Zolpidem Tartrate [Ambien] 10 mg PO HS 04/22/18 levoFLOXacin [Levaquin -] 500 mg PO DAILY@0600 #5 tablet 06/15/18 - Diagnosis (1) Alcohol dependence with uncomplicated withdrawal Status: Acute (2) Opioid dependence with withdrawal Status: Acute (3) Asthma Status: Chronic Qualifiers: Asthma severity: mild Asthma persistence: unspecified Asthma complication type: uncomplicated Qualified Code(s): J45.909 - Unspecified asthma, uncomplicated (4) Cannabis dependence Status: Acute (5) Cocaine dependence Status: Acute Qualifiers: Substance use status: uncomplicated Qualified Code(s): F14.20 - Cocaine dependence, uncomplicated (6) Nicotine dependence Status: Chronic Qualifiers: Nicotine product type: cigarettes Substance use status: in withdrawal Qualified Code(s): F17.213 - Nicotine dependence, cigarettes, with withdrawal (7) Edema of both legs Status: Acute (8) History of fracture of left ankle Status: Acute (9) UTI (urinary tract infection) Status: Acute Qualifiers: Encounter type: subsequent encounter (10) GERD (gastroesophageal reflux disease) Status: Chronic Qualifiers: Esophagitis presence: esophagitis presence not specified Qualified Code(s) : K21.9 - Gastro-esophageal reflux disease without esophagitis - AMA Did Patient Leave Against Medical Advice: Yes
[2018-06-15] MEDS ORDERED: LIDOCAINE PATCH REMOVAL MC SCH (18:00)
[2018-06-16] MEDS ORDERED: chlordiazePOXIDE HCL 10 MG CAPSULE PO SCH (11:00)
[2018-06-17] MEDS ORDERED: METHADONE HCL 10 MG TABLET (FOR DETOX USE ONLY) PO SCH (10:00)
[2018-06-18] MEDS ORDERED: METHADONE HCL 5 MG TABLET (FOR DETOX USE ONLY) PO SCH (06:00)
== END 2018-06-15 11:02 | disposition left against medical advice (07) | DRG 770 ==
LOC: YASAS 08:04 → Y3N 10:21
PROC: HZ2ZZZZ Detoxification Services for Substance Abuse Treatment (ICD-10-PCS; principal; 2018-06-13)
DX: F11.23 Opioid dependence with withdrawal (principal); F10.230 Alcohol dependence with withdrawal, uncomplicated; F14.20 Cocaine dependence, uncomplicated; F12.20 Cannabis dependence, uncomplicated; F17.210 Nicotine dependence, cigarettes, uncomplicated; F31.9 Bipolar disorder, unspecified; F42.9 Obsessive-compulsive disorder, unspecified; F19.24 Other psychoactive substance dependence with psychoactive substance-induced mood disorder; N39.0 Urinary tract infection, site not specified; K21.9 Gastro-esophageal reflux disease without esophagitis; J45.909 Unspecified asthma, uncomplicated; G47.00 Insomnia, unspecified; R60.0 Localized edema; Z87.81 Personal history of (healed) traumatic fracture; Z98.890 Other specified postprocedural states
CPT/HCPCS: 36415; 80053; 81003; 81015; 85027; 86593; 90732; G0009

== ENCOUNTER 2018-11-10 10:28 | Inpatient (IN) | payer OTHER ==
[2018-11-10 12:31] VITALS: BMI 31.9
--- NOTE | 2018-11-10 15:22 | HP ---
COWS - Scale Resting Pulse: 0= [place] 80 or Below Sweatin= Chills/Flushing Restless Observation: 3= Extraneous Movement Pupil Size: 1= Pupils >than Normal Bone or Joint Aches: 2= Severe Diffuse Aches Runny Nose/ Eye Tearin= Runny Nose/Eyes GI Upset > 30mins: 2= Nausea/Diarrhea Tremor Observation: 2= Slight Tremor Visible Yawning Observation: 2= >3x During Session Anxiety or Irritability: 2=Irritable/Anxious Goose Flesh Skin: 0=Smooth Skin COWS Score: 17 CIWA Score - Admission Criteria [facility] Guidelines: Admission for Medically Managed Detox: Requires at least one of the followin. CIWA greater than 12 2. Seizures within the past 24 hours 3. Delirium tremens within the past 24 hours 4. Hallucinations within the past 24 hours 5. Acute intervention needed for co occurring medical disorder 6. Acute intervention needed for co occurring psychiatric disorder 7. Severe withdrawal that cannot be handled at a lower level of care (continued vomiting, continued diarrhea, abnormal vital signs) requiring intravenous medication and/or fluids 8. Admission ROS [facility] Chief Complaint: i need help to stop using heroin,cocaine and marijuana Allergies/Adverse Reactions: Allergies Allergy/AdvReac Type Severity Reaction Status Date / Time No Known Allergies Allergy Verified 11/10/18 12:11 History of Present Illness: this 53 years old female with heroin,cocaine and marijuana dependence,seeking detox,withdrawal symptom has previous admissions before,last [facility] 06/13/18 to 07/16/17 nicotine dependence 1/2 pack/day longest period of sobriety 5 years may go to rehab after detox gerd asthma Exam Limitations: No Limitations - Ebola screening Have you traveled outside of the country in the last 21 days: No (N) Have you had contact with anyone from an Ebola affected area: No Do you have a fever: No - Review of Systems Constitutional: Chills, Loss of Appetite, Night Sweats, Changes in sleep, Unintentional Wgt. Loss EENT: reports: Tearing, Nose Congestion Respiratory: reports: No Symptoms reported Cardiac: reports: No Symptoms Reported, Palpitations GI: reports: Diarrhea, Nausea, Vomiting : reports: No Symptoms Reported Musculoskeletal: reports: Back Pain, Joint Pain, Muscle Pain, Neck Pain Integumentary: reports: Dryness Neuro: reports: No Symptoms reported, Tremors Endocrine: reports: No Symptoms Reported Hematology: reports: No Symptoms Reported Psychiatric: reports: No Sypmtoms Reported, Judgement Intact, Mood/Affect Appropiate, Orientated x3 Other Systems: Reviewed and Negative Patient History - Patient Medical History Hx Anemia: No Hx Asthma: Yes (on albuterol inhaler in the past) Hx Chronic Obstructive Pulmonary Disease (COPD): No Hx Cancer: No Hx Cardiac Disorders: No Hx Congestive Heart Failure: No Hx Hypertension: No Hx Hypercholesterolemia: No Hx Pacemaker: No HX Cerebrovascular Accident: No Hx Seizures: No Hx Dementia: No Hx Diabetes: No Hx Gastrointestinal Disorders: Yes (Acid reflux) Hx Liver Disease: No Hx Genitourinary Disorders: No Hx Sexually Transmitted Disorders: No Hx Renal Disease (ESRD): No Hx Thyroid Disease: No Hx Human Immunodeficiency Virus (HIV): No (last 2018 negative) Hx Hepatitis C: No Hx Depression: Yes Hx Suicide Attempt: No Hx Bipolar Disorder: Yes (no med,does not want to see psychiatrist) Hx Schizophrenia: No Other Medical History: no suicidal,no homicidal - Patient Surgical History Past Surgical History: Yes Hx Neurologic Surgery: No Hx Cataract Extraction: No Hx Cardiac Surgery: No Hx Lung Surgery: No Hx Breast Surgery: No Hx Breast Biopsy: No Hx Abdominal Surgery: No Hx Appendectomy: No Hx Cholecystectomy: No Hx Genitourinary Surgery: No Hx Section: No Hx Orthopedic Surgery: Yes (L shoulder sx in 2014 L ankle sx in 2010) Anesthesia Reaction: No - PPD History Previous Implant?: Yes Documented Results: Negative w/o proof Date: 04/24/18 Results: not reading PPD to be Administered?: Yes - Reproductive History Patient is a Female of Child Bearing Age (11 -55 yrs old): Yes Last Menstrual Period: 05/16/11 Patient : No - Smoking Cessation Smoking history: Current every day smoker Have you smoked in the past 12 months: Yes Aproximately how many cigarettes per day: 10 Hx Chewing Tobacco Use: No Initiated information on smoking cessation: Yes 'Breaking Loose' booklet given: 11/10/18 - Substance & Tx. History Hx Alcohol Use: No Hx Substance Use: Yes Substance Use Type: Cocaine, Heroin, Marijuana Hx Substance Use Treatment: Yes ([facility] 06/13/18 to 06/15/18) - Substances abused Heroin Substance route: Inhalation Frequency: Daily Amount used: 3 BUNDLES Age of first use: 44 Date of last use: 11/09/18 Cocaine Substance route: Inhalation Frequency: 3-6 times per week Amount used: 1 GRAM Age of first use: 26 Date of last use: 11/09/18 Marijuana/Hashish Substance route: Smoking Frequency: Daily Amount used: 4-5 BLUNTS Age of first use: 19 Date of last use: 11/10/18 Family Disease History - Family Disease History Family Disease History: Other: Father (alcohol), Mother (alcohol) Admission Physical Exam [facility] - Vital Signs Vital Signs: Vital Signs - 24 hr 11/10/18 11/10/18 12:13 13:13 Temperature 97.3 F L 97.3 F L Pulse Rate 76 76 Respiratory 20 20 Rate Blood Pressure 136/86 136/86 - Physical General Appearance: Yes: Moderate Distress, Tremorous, Irritable, Sweating, Anxious HEENTM: Yes: Normal ENT Inspection, MARIBEL, Pharynx Normal Respiratory: Yes: Lungs Clear, Normal Breath Sounds, No Respiratory Distress Neck: Yes: Within Normal Limits, Supple, Trachea in good position Breast: Yes: Breast Exam Deferred Cardiology: Yes: Within Normal Limits, Regular Rhythm, Regular Rate, S1, S2 Abdominal: Yes: Within Normal Limits, Normal Bowel Sounds, Non Tender, Flat Genitourinary: Yes: Within Normal Limits Back: Yes: Normal Inspection, Muscle Spasm Musculoskeletal: Yes: Back pain, Joint Stiffness, Muscle Pain Extremities: Yes: Tremors Neurological: Yes: plumbing foreman II-XII NML intact, Fully Oriented, Alert, Motor Strength 5/5 Integumentary: Yes: Dry Lymphatic: Yes: Within Normal Limits - Diagnostic (1) Opioid dependence with withdrawal Current Visit: No Status: Acute (2) Cannabis dependence Current Visit: No Status: Acute (3) Cocaine dependence Current Visit: No Status: Acute Qualifiers: Substance use status: uncomplicated Qualified Code(s): F14.20 - Cocaine dependence, uncomplicated (4) H/O rotator cuff surgery Current Visit: No Status: Acute (5) History of fracture of left ankle Current Visit: No Status: Acute (6) Low back pain Current Visit: No Status: Acute (7) Asthma Current Visit: No Status: Chronic Qualifiers: Asthma severity: mild Asthma persistence: unspecified Asthma complication type: uncomplicated Qualified Code(s): J45.909 - Unspecified asthma, uncomplicated (8) Bipolar disorder Current Visit: No Status: Chronic (9) Nicotine dependence Current Visit: No Status: Chronic Qualifiers: Nicotine product type: cigarettes Substance use status: in withdrawal Qualified Code(s): F17.213 - Nicotine dependence, cigarettes, with withdrawal Cleared for Admission S - Detox or Rehab [facility] Level of Care: Medically Managed Detox Regimen/Protocol: Methadone Breathalyzer - Breathalyzer Breathalyzer: 0 POC Urine test - Test device test lot number: [id number] Expiration date: 04/14/20 - Control test control: Yes - Result Urine Test Results: Negative - NO line present Urine Drug Screen - Test Device Lot number: [id number] Expiration date: 06/14/20 - Control Is test valid?: Yes - Results Drug screen NEGATIVE: No Urine drug screen results: THC-Marijuana, DAO-Cocaine, FEN-Fentanyl, MOP-Opiates Inpatient Rehab Admission - Rehab Decision to Admit Inpatient rehab admission?: No
[2018-11-10] MEDS ORDERED: MENTHOL/PHENOL 1 EACH UD MM PRN (15:32)
[2018-11-10] MEDS ORDERED: MAGNESIUM HYDROX 2400MG/30ML ORAL SUSPENSION 30 ML CUP PO PRN (15:32)
[2018-11-10] MEDS ORDERED: MAG HYDROX/AL HYDROX/SIMETH 30 ML UNIT-DOSE CUP PO PRN (15:32)
[2018-11-10] MEDS ORDERED: IBUPROFEN 400 MG TABLET (FP) PO PRN (15:32)
[2018-11-10] MEDS ORDERED: ACETAMINOPHEN 325 MG TABLET (FP) PO PRN ×2 (15:32)
[2018-11-10] MEDS ORDERED: MAGNESIUM CITRATE 300 ML BOTTLE PO PRN (15:32)
[2018-11-10] MEDS ORDERED: BISMUTH SUBSALICYLATE 524 MG/30 ML UD PO PRN (15:32)
[2018-11-10] MEDS ORDERED: MELATONIN 5 MG TABLETS PO PRN (15:32)
[2018-11-10] MEDS ORDERED: hydrOXYzine PAMOATE 25 MG CAPSULE (FP) PO PRN (15:32)
[2018-11-10] MEDS ORDERED: METHADONE HCL 10 MG TABLET (FOR DETOX USE ONLY) PO ONE ×2 (15:36→23:00)
[2018-11-10] MEDS ORDERED: ALBUTEROL SO4 8 GM HFA INHALER IH PRN (15:43)
[2018-11-10] MEDS: diazePAM 5 MG TABLET PO PRN (16:39)
[2018-11-10] MEDS: NICOTINE 21 MG/24 HOURS TOPICAL PATCH TD SCH (16:40)
[2018-11-10 17:31] LABS: EPI CELLS 15.9 /HPF (0-5/HPF); URINE APPEARANCE TURBID; URINE BACTERIA 3922.6 /hpf (NEGATIVE); URINE BILIRUBIN NEGATIVE (NEGATIVE); URINE CASTS 21 /lpf (0-8); URINE COLOR DK YELLOW; URINE GLUCOSE (UA) NEGATIVE (NEGATIVE); URINE KETONE TRACE (NEGATIVE); URINE LEUK ESTERASE 2+ (NEGATIVE); URINE NITRITE POSITIVE (NEGATIVE); URINE PROTEIN NEGATIVE (NEGATIVE); URINE RBC 1 /hpf (0-4); URINE UROBILINOGEN 0.2 mg/dL (0.2-1.0); URINE WBC 15 /hpf (0-5)
[2018-11-10] MEDS: cloNIDine HCL 0.1 MG TABLET PO PRN (18:16)
[2018-11-10] MEDS: THIAMINE HCL 100 MG TABLET (FP) PO SCH (22:11)
[2018-11-11] MEDS: diazePAM 5 MG TABLET PO PRN ×5 (01:10→22:09)
[2018-11-11] MEDS ORDERED: METHADONE HCL 10 MG TABLET (FOR DETOX USE ONLY) PO ONE (10:00)
[2018-11-11 10:08] LABS: HEMOGLOBIN 15.1 GM/dL (10.7-15.3); MCH 30.2 pg (25.7-33.7); MCHC 33.5 g/dl (32.0-36.0); MEAN CELL VOLUME 90.3 fl (80-96); MEAN PLT VOLUME 9.4 fl (7.5-11.1); PLATELET COUNT 212 K/MM3 (134-434); RBC 4.99 M/mm3 (3.60-5.2); RDW 13.6 % (11.6-15.6); WHITE BLOOD COUNT 10.6 K/mm3 (4.0-10.0)
[2018-11-11 10:09] LABS: ALBUMIN 3.3 g/dl (3.4-5.0); ALK PHOS 93 U/L (45-117); ANION GAP 5 MMOL/L (8-16); BILIRUBIN,TOTAL 0.3 mg/dL (0.2-1); BLOOD UREA NITROGEN 15 mg/dL (7-18); CALCIUM 9.1 mg/dL (8.5-10.1); CHLORIDE 105 mmol/L (98-107); CO2 31 mmol/L (21-32); CREATININE 0.6 mg/dL (0.55-1.3); GLUCOSE,RANDOM 116 mg/dL (74-106); POTASSIUM 4.8 mmol/L (3.5-5.1); SGOT/AST 17 U/L (15-37); SGPT/ALT 16 U/L (13-61); SODIUM 141 mmol/L (136-145); TOT PROT 6.9 g/dl (6.4-8.2)
[2018-11-11] MEDS: cloNIDine HCL 0.1 MG TABLET PO PRN ×2 (10:19→23:15)
[2018-11-11] MEDS: PRENATAL VITAMINS W/ FOLIC ACID TABLET (FP) PO SCH (10:19)
[2018-11-11] MEDS: NICOTINE 21 MG/24 HOURS TOPICAL PATCH TD SCH (10:19)
[2018-11-11] MEDS ORDERED: COLLOIDAL OATMEAL 1 BAR EACH TP PRN (11:12)
--- NOTE | 2018-11-11 11:44 | PN ---
S COWS - Scale Resting Pulse: 1= [place] 81-100 Sweatin= Chills/Flushing Restless Observation: 0= Sits Still Pupil Size: 1= Pupils >than Normal Bone or Joint Aches: 1= Mild Discomfort Runny Nose/ Eye Tearin= None GI Upset > 30mins: 1= Stomach Cramp Tremor Observation of Outstretched Hands: 2= Slight Tremor Visible Yawning Observation: 2= >3x During Session Anxiety or Irritability: 2=Irritable/Anxious Goose Flesh Skin: 3=[place] COWS Score: 14 BHS Progress Note (SOAP) Subjective: left upper took cracke "months" ago no bleeding gum swell tender when chewing regular food encourage oral hygiene amoxicillin 500 mg po bid Objective: 11/11/18 11:42 Vital Signs Temperature 97.5 F L 11/11/18 09:06 Pulse Rate 85 11/11/18 09:54 Respiratory Rate 18 11/11/18 09:06 Blood Pressure 127/79 11/11/18 09:54 O2 Sat by Pulse Oximetry (%) Laboratory Last Values WBC 10.6 K/mm3 (4.0-10.0) H 11/11/18 07:00 RBC 4.99 M/mm3 (3.60-5.2) 11/11/18 07:00 Hgb 15.1 GM/dL (10.7-15.3) 11/11/18 07:00 Hct 45.0 % (32.4-45.2) 11/11/18 07:00 MCV 90.3 fl (80-96) 11/11/18 07:00 MCH 30.2 pg (25.7-33.7) 11/11/18 07:00 MCHC 33.5 g/dl (32.0-36.0) 11/11/18 07:00 RDW 13.6 % (11.6-15.6) 11/11/18 07:00 Plt Count 212 K/MM3 (134-434) 11/11/18 07:00 MPV 9.4 fl (7.5-11.1) 11/11/18 07:00 Manual Slide Review 11/11/18 07:00 Sodium 141 mmol/L (136-145) 11/11/18 07:00 Potassium 4.8 mmol/L (3.5-5.1) 11/11/18 07:00 Chloride 105 mmol/L (98-107) 11/11/18 07:00 Carbon Dioxide 31 mmol/L (21-32) 11/11/18 07:00 Anion Gap 5 MMOL/L (8-16) L 11/11/18 07:00 BUN 15 mg/dL (7-18) 11/11/18 07:00 Creatinine 0.6 mg/dL (0.55-1.3) 11/11/18 07:00 Creat Clearance w eGFR 104.98 (>60) 11/11/18 07:00 Random Glucose 116 mg/dL (74-106) H 11/11/18 07:00 Calcium 9.1 mg/dL (8.5-10.1) 11/11/18 07:00 Total Bilirubin 0.3 mg/dL (0.2-1) 11/11/18 07:00 AST 17 U/L (15-37) 11/11/18 07:00 ALT 16 U/L (13-61) 11/11/18 07:00 Alkaline Phosphatase 93 U/L (45-117) 11/11/18 07:00 Total Protein 6.9 g/dl (6.4-8.2) 11/11/18 07:00 Albumin 3.3 g/dl (3.4-5.0) L 11/11/18 07:00 Urine Color Dk yellow 11/10/18 15:59 Urine Appearance Turbid 11/10/18 15:59 Urine pH 5.0 (5.0-8.0) 11/10/18 15:59 Ur Specific [place] 1.027 (1.010-1.035) 11/10/18 15:59 Urine Protein Negative (NEGATIVE) 11/10/18 15:59 Urine Glucose (UA) Negative (NEGATIVE) 11/10/18 15:59 Urine Ketones Trace (NEGATIVE) H 11/10/18 15:59 Urine Blood Negative (NEGATIVE) 11/10/18 15:59 Urine Nitrite Positive (NEGATIVE) H 11/10/18 15:59 Urine Bilirubin Negative (NEGATIVE) 11/10/18 15:59 Urine Urobilinogen 0.2 mg/dL (0.2-1.0) 11/10/18 15:59 Ur Leukocyte Esterase 2+ (NEGATIVE) H 11/10/18 15:59 Urine WBC (Auto) 15 /hpf (0-5) 11/10/18 15:59 Urine RBC (Auto) 1 /hpf (0-4) 11/10/18 15:59 Urine Casts (Auto) 21 /lpf (0-8) 11/10/18 15:59 U Epithel Cells (Auto) 15.9 /HPF (0-5/HPF) 11/10/18 15:59 Urine Bacteria (Auto) 3922.6 /hpf (NEGATIVE) 11/10/18 15:59 Urine HCG, Qual Negative 11/10/18 15:59 lab noted repeat ua Assessment: 11/11/18 11:43 opiate withdrawal sx Plan: continue detox
[2018-11-11] MEDS: MINERAL OIL/PETROLAT/WATER TOPICAL CREAM 113 GM JAR TP SCH (14:27)
[2018-11-11] MEDS: METHOCARBAMOL 500 MG TABLET PO PRN (14:29)
[2018-11-11] MEDS: AMOXICILLIN 500 MG CAPSULE (FP) PO SCH ×2 (15:46→22:09)
[2018-11-11] MEDS: THIAMINE HCL 100 MG TABLET (FP) PO SCH (22:09)
[2018-11-12 01:53] LABS: EPI CELLS 2.8 /HPF (0-5/HPF); URINE APPEARANCE CLEAR; URINE BACTERIA 156.9 /hpf (NEGATIVE); URINE BILIRUBIN NEGATIVE (NEGATIVE); URINE CASTS 1 /lpf (0-8); URINE COLOR YELLOW; URINE GLUCOSE (UA) NEGATIVE (NEGATIVE); URINE KETONE NEGATIVE (NEGATIVE); URINE LEUK ESTERASE 1+ (NEGATIVE); URINE NITRITE NEGATIVE (NEGATIVE); URINE PROTEIN NEGATIVE (NEGATIVE); URINE RBC 1 /hpf (0-4); URINE UROBILINOGEN 0.2 mg/dL (0.2-1.0); URINE WBC 6 /hpf (0-5)
[2018-11-12] MEDS: diazePAM 5 MG TABLET PO PRN ×2 (02:53→10:18)
[2018-11-12] MEDS: METHOCARBAMOL 500 MG TABLET PO PRN (09:01)
[2018-11-12] MEDS ORDERED: METHADONE HCL 10 MG TABLET (FOR DETOX USE ONLY) PO ONE (10:00)
[2018-11-12] MEDS: NICOTINE 21 MG/24 HOURS TOPICAL PATCH TD SCH (10:18)
[2018-11-12] MEDS: PRENATAL VITAMINS W/ FOLIC ACID TABLET (FP) PO SCH (10:18)
[2018-11-12] MEDS: MINERAL OIL/PETROLAT/WATER TOPICAL CREAM 113 GM JAR TP SCH (10:19)
[2018-11-12] MEDS: AMOXICILLIN 500 MG CAPSULE (FP) PO SCH (10:22)
--- NOTE | 2018-11-12 13:40 | PN ---
BHS COWS - Scale Resting Pulse: 1= [place] 81-100 Sweatin= Chills/Flushing Restless Observation: 1= Difficult to Sit Still Pupil Size: 0= Normal to Room Light Bone or Joint Aches: 1= Mild Discomfort Runny Nose/ Eye Tearin= Nasal Congestion GI Upset > 30mins: 1= Stomach Cramp Tremor Observation of Outstretched Hands: 1= Tremor [place], Not Seen Yawning Observation: 1= 1-2x During Session Anxiety or Irritability: 2=Irritable/Anxious Goose Flesh Skin: 0=Smooth Skin COWS Score: 10 BHS Progress Note (SOAP) Subjective: report chronic abdominal pain x 18 years "two" doctor recommended "surgery" denies nausea denies diarrhea, denies constipation, had regular BM yesterday, good appetites abdomen around soft none tender, BS x [address] social with peers in day room reporting abdominal pain from opiate withdrawal discontinue motrin begin zantac Objective: 11/12/18 13:40 Vital Signs Temperature 96.5 F L 11/12/18 09:18 Pulse Rate 84 11/12/18 09:18 Respiratory Rate 18 11/12/18 09:18 Blood Pressure 100/72 11/12/18 09:18 O2 Sat by Pulse Oximetry (%) Laboratory Last Values WBC 10.6 K/mm3 (4.0-10.0) H 11/11/18 07:00 RBC 4.99 M/mm3 (3.60-5.2) 11/11/18 07:00 Hgb 15.1 GM/dL (10.7-15.3) 11/11/18 07:00 Hct 45.0 % (32.4-45.2) 11/11/18 07:00 MCV 90.3 fl (80-96) 11/11/18 07:00 MCH 30.2 pg (25.7-33.7) 11/11/18 07:00 MCHC 33.5 g/dl (32.0-36.0) 11/11/18 07:00 RDW 13.6 % (11.6-15.6) 11/11/18 07:00 Plt Count 212 K/MM3 (134-434) 11/11/18 07:00 MPV 9.4 fl (7.5-11.1) 11/11/18 07:00 Manual Slide Review 11/11/18 07:00 Sodium 141 mmol/L (136-145) 11/11/18 07:00 Potassium 4.8 mmol/L (3.5-5.1) 11/11/18 07:00 Chloride 105 mmol/L (98-107) 11/11/18 07:00 Carbon Dioxide 31 mmol/L (21-32) 11/11/18 07:00 Anion Gap 5 MMOL/L (8-16) L 11/11/18 07:00 BUN 15 mg/dL (7-18) 11/11/18 07:00 Creatinine 0.6 mg/dL (0.55-1.3) 11/11/18 07:00 Creat Clearance w eGFR 104.98 (>60) 11/11/18 07:00 Random Glucose 116 mg/dL (74-106) H 11/11/18 07:00 Calcium 9.1 mg/dL (8.5-10.1) 11/11/18 07:00 Total Bilirubin 0.3 mg/dL (0.2-1) 11/11/18 07:00 AST 17 U/L (15-37) 11/11/18 07:00 ALT 16 U/L (13-61) 11/11/18 07:00 Alkaline Phosphatase 93 U/L (45-117) 11/11/18 07:00 Total Protein 6.9 g/dl (6.4-8.2) 11/11/18 07:00 Albumin 3.3 g/dl (3.4-5.0) L 11/11/18 07:00 Urine Color Yellow 11/11/18 17:02 Urine Appearance Clear 11/11/18 17:02 Urine pH 5.0 (5.0-8.0) 11/11/18 17:02 Ur Specific [place] 1.021 (1.010-1.035) 11/11/18 17:02 Urine Protein Negative (NEGATIVE) 11/11/18 17:02 Urine Glucose (UA) Negative (NEGATIVE) 11/11/18 17:02 Urine Ketones Negative (NEGATIVE) 11/11/18 17:02 Urine Blood Negative (NEGATIVE) 11/11/18 17:02 Urine Nitrite Negative (NEGATIVE) 11/11/18 17:02 Urine Bilirubin Negative (NEGATIVE) 11/11/18 17:02 Urine Urobilinogen 0.2 mg/dL (0.2-1.0) 11/11/18 17:02 Ur Leukocyte Esterase 1+ (NEGATIVE) H 11/11/18 17:02 Urine WBC (Auto) 6 /hpf (0-5) 11/11/18 17:02 Urine RBC (Auto) 1 /hpf (0-4) 11/11/18 17:02 Urine Casts (Auto) 1 /lpf (0-8) 11/11/18 17:02 U Epithel Cells (Auto) 2.8 /HPF (0-5/HPF) 11/11/18 17:02 Urine Bacteria (Auto) 156.9 /hpf (NEGATIVE) 11/11/18 17:02 Urine HCG, Qual Negative 11/10/18 15:59 RPR Titer Nonreactive (NONREACTIVE) 11/11/18 07:00 HIV 1&2 Antibody Screen Negative 11/11/18 07:00 HIV P24 Antigen Negative 11/11/18 07:00 lab noted Assessment: 11/12/18 13:41 withdrawal sx Plan: continue detox
[2018-11-12 13:42] VITALS: BP 119/75; PULSE 78; TEMP 96
[2018-11-12] MEDS ORDERED: RANITIDINE HCL 150 MG TABLET (FP) PO SCH (14:05)
--- NOTE | 2018-11-12 14:51 | DS ---
[facility] Detox Discharge Summary Admission Date: 11/10/18 Discharge Date: 11/12/18 - History Present History: Opioid Dependence Additional Comments: 53 years old female admitted on11/10/18 for opiate withdrawal stabilization insists to leave the detox unit that 10 mg methadone does not do any good to her discuss methadone assisted maintenance treatment program patient is concerning about up every morning to go to the program could be a problem up so early encourage the patient supervisor opening and picking narcan from pharmacy Pertinent Past History: bring in medication list and lab report to follow up care appointment - Physical Exam Results Vital Signs: Vital Signs Temperature 96.0 F L 11/12/18 13:42 Pulse Rate 78 11/12/18 13:42 Respiratory Rate 20 11/12/18 13:42 Blood Pressure 119/75 11/12/18 13:42 O2 Sat by Pulse Oximetry (%) Pertinent Admission Physical Exam Findings: opiate withdrawal sx Laboratory Last Values WBC 10.6 K/mm3 (4.0-10.0) H 11/11/18 07:00 RBC 4.99 M/mm3 (3.60-5.2) 11/11/18 07:00 Hgb 15.1 GM/dL (10.7-15.3) 11/11/18 07:00 Hct 45.0 % (32.4-45.2) 11/11/18 07:00 MCV 90.3 fl (80-96) 11/11/18 07:00 MCH 30.2 pg (25.7-33.7) 11/11/18 07:00 MCHC 33.5 g/dl (32.0-36.0) 11/11/18 07:00 RDW 13.6 % (11.6-15.6) 11/11/18 07:00 Plt Count 212 K/MM3 (134-434) 11/11/18 07:00 MPV 9.4 fl (7.5-11.1) 11/11/18 07:00 Manual Slide Review 11/11/18 07:00 Sodium 141 mmol/L (136-145) 11/11/18 07:00 Potassium 4.8 mmol/L (3.5-5.1) 11/11/18 07:00 Chloride 105 mmol/L (98-107) 11/11/18 07:00 Carbon Dioxide 31 mmol/L (21-32) 11/11/18 07:00 Anion Gap 5 MMOL/L (8-16) L 11/11/18 07:00 BUN 15 mg/dL (7-18) 11/11/18 07:00 Creatinine 0.6 mg/dL (0.55-1.3) 11/11/18 07:00 Creat Clearance w eGFR 104.98 (>60) 11/11/18 07:00 Random Glucose 116 mg/dL (74-106) H 11/11/18 07:00 Calcium 9.1 mg/dL (8.5-10.1) 11/11/18 07:00 Total Bilirubin 0.3 mg/dL (0.2-1) 11/11/18 07:00 AST 17 U/L (15-37) 11/11/18 07:00 ALT 16 U/L (13-61) 11/11/18 07:00 Alkaline Phosphatase 93 U/L (45-117) 11/11/18 07:00 Total Protein 6.9 g/dl (6.4-8.2) 11/11/18 07:00 Albumin 3.3 g/dl (3.4-5.0) L 11/11/18 07:00 Urine Color Yellow 11/11/18 17:02 Urine Appearance Clear 11/11/18 17:02 Urine pH 5.0 (5.0-8.0) 11/11/18 17:02 Ur Specific [place] 1.021 (1.010-1.035) 11/11/18 17:02 Urine Protein Negative (NEGATIVE) 11/11/18 17:02 Urine Glucose (UA) Negative (NEGATIVE) 11/11/18 17:02 Urine Ketones Negative (NEGATIVE) 11/11/18 17:02 Urine Blood Negative (NEGATIVE) 11/11/18 17:02 Urine Nitrite Negative (NEGATIVE) 11/11/18 17:02 Urine Bilirubin Negative (NEGATIVE) 11/11/18 17:02 Urine Urobilinogen 0.2 mg/dL (0.2-1.0) 11/11/18 17:02 Ur Leukocyte Esterase 1+ (NEGATIVE) H 11/11/18 17:02 Urine WBC (Auto) 6 /hpf (0-5) 11/11/18 17:02 Urine RBC (Auto) 1 /hpf (0-4) 11/11/18 17:02 Urine Casts (Auto) 1 /lpf (0-8) 11/11/18 17:02 U Epithel Cells (Auto) 2.8 /HPF (0-5/HPF) 11/11/18 17:02 Urine Bacteria (Auto) 156.9 /hpf (NEGATIVE) 11/11/18 17:02 Urine HCG, Qual Negative 11/10/18 15:59 RPR Titer Nonreactive (NONREACTIVE) 11/11/18 07:00 HIV 1&2 Antibody Screen Negative 11/11/18 07:00 HIV P24 Antigen Negative 11/11/18 07:00 lab noted - Treatment Hospital Course: Detox Protocol Followed, Responded well Patient has Accepted a Rehab Referral to: [facility] self help group - Medication Discharge Medications: Ambulatory Orders Cyclobenzaprine HCl [Flexeril 10 mg] 10 mg PO TID 04/22/18 Diazepam [Valium] 5 mg PO TID 04/22/18 Zolpidem Tartrate [Ambien] 10 mg PO HS 04/22/18 Naloxone HCl [Narcan] 4 mg NS ASDIR PRN #1 spray 11/12/18 - Diagnosis (1) Alcohol dependence with uncomplicated withdrawal Current Visit: Yes Status: Acute (2) Opioid dependence with withdrawal Current Visit: Yes Status: Acute (3) Asthma Current Visit: Yes Status: Chronic Qualifiers: Asthma severity: mild Asthma persistence: unspecified Asthma complication type: uncomplicated Qualified Code(s): J45.909 - Unspecified asthma, uncomplicated (4) GERD (gastroesophageal reflux disease) Current Visit: Yes Status: Chronic Qualifiers: Esophagitis presence: without esophagitis Qualified Code(s): K21.9 - Gastro -esophageal reflux disease without esophagitis (5) Nicotine dependence Current Visit: Yes Status: Acute Qualifiers: Nicotine product type: cigarettes Substance use status: in withdrawal Qualified Code(s): F17.213 - Nicotine dependence, cigarettes, with withdrawal - AMA Did Patient Leave Against Medical Advice: No
[2018-11-13] MEDS ORDERED: METHADONE (DETOX) 10 MG, METHADONE (DETOX) 5 MG PO ONE (10:00)
[2018-11-13] MEDS ORDERED: METHADONE HCL 10 MG TABLET (FOR DETOX USE ONLY) PO ONE (10:00)
[2018-11-14] MEDS ORDERED: METHADONE HCL 5 MG TABLET (FOR DETOX USE ONLY) PO ONE (06:00)
[2018-11-14] MEDS ORDERED: METHADONE HCL 10 MG TABLET (FOR DETOX USE ONLY) PO ONE (10:00)
[2018-11-15] MEDS ORDERED: METHADONE HCL 5 MG TABLET (FOR DETOX USE ONLY) PO ONE (06:00)
== END 2018-11-12 15:43 | disposition home or self-care (01) | DRG 773 ==
LOC: YASAS 10:28 → Y6N 15:31 → Y3N 16:26
PROVIDERS: ADMIT Surgery; ATTEND Surgery
PROC: HZ2ZZZZ Detoxification Services for Substance Abuse Treatment (ICD-10-PCS; principal; 2018-11-10)
DX: F10.230 Alcohol dependence with withdrawal, uncomplicated (principal); F11.23 Opioid dependence with withdrawal; F14.20 Cocaine dependence, uncomplicated; F12.20 Cannabis dependence, uncomplicated; F17.213 Nicotine dependence, cigarettes, with withdrawal; F31.9 Bipolar disorder, unspecified; J45.909 Unspecified asthma, uncomplicated; K21.9 Gastro-esophageal reflux disease without esophagitis; Z87.81 Personal history of (healed) traumatic fracture; Z98.890 Other specified postprocedural states
CPT/HCPCS: 36415; 80053; 81003; 84703; 85027; 86593; 87389; J0735

== ENCOUNTER 2018-11-26 09:19 | Inpatient (IN) | payer OTHER | END 2018-11-27 09:30 | disposition left against medical advice (07) | LOC: YASAS 09:19 → Y3N 10:59 ==

== ENCOUNTER 2019-03-20 10:29 | Inpatient (IN) | payer OTHER ==
[2019-03-20 11:50] VITALS: BMI 31.1
--- NOTE | 2019-03-20 12:28 | HP ---
COWS - Scale Resting Pulse: 0= [place] 80 or Below Sweatin= Chills/Flushing Restless Observation: 1= Difficult to Sit Still Pupil Size: 0= Normal to Room Light Bone or Joint Aches: 2= Severe Diffuse Aches Runny Nose/ Eye Tearin= Runny Nose/Eyes GI Upset > 30mins: 1= Stomach Cramp Tremor Observation: 1= Tremor [place], Not Seen Yawning Observation: 1= 1-2x During Session Anxiety or Irritability: 4=Extreme Anxiety Goose Flesh Skin: 0=Smooth Skin COWS Score: 13 CIWA Score - Admission Criteria OASAS Guidelines: Admission for Medically Managed Detox: Requires at least one of the followin. CIWA greater than 12 2. Seizures within the past 24 hours 3. Delirium tremens within the past 24 hours 4. Hallucinations within the past 24 hours 5. Acute intervention needed for co occurring medical disorder 6. Acute intervention needed for co occurring psychiatric disorder 7. Severe withdrawal that cannot be handled at a lower level of care (continued vomiting, continued diarrhea, abnormal vital signs) requiring intravenous medication and/or fluids 8. Admission ROS [facility] Chief Complaint: detox from heroin, crack Allergies/Adverse Reactions: Allergies Allergy/AdvReac Type Severity Reaction Status Date / Time No Known Allergies Allergy Verified 03/20/19 11:41 History of Present Illness: 53F chronic depression, chronic pain(lower back, neck) presenting for detox from heroin. Sniffs 30bags daily, x9ys. 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 Never OD' d. Started taking opioids(morphine) for chronic pain for 4-5ys prior to switching to heroin. Smokes $30-40 crack every ~2d. Tried IV heroin once. Takes Valium 10mg TID PRN. Uses MJ intermittently throughout the month. Denies EtOH. Smokes 10-12cig daily. Never had outpatient methadone. Saw a pain management in [place], but did not get started on any regimens. No incarcerations. Homeless x2ys, living on the streets. Gets money from family and romantic relationships. - Ebola screening Have you traveled outside of the country in the last 21 days: No (N) Have you had contact with anyone from an Ebola affected area: No Do you have a fever: No - Review of Systems Constitutional: Chills, Unintentional Wgt. Loss (100lbs in 15mo) EENT: denies: Blurred Vision, Double Vision Respiratory: reports: Wheezing. denies: Cough, Productive cough Cardiac: denies: Lightheadedness, Palpitations GI: reports: Constipated, Nausea. denies: Abdominal Distended, Diarrhea, Difficulty Swallowing, Vomiting : denies: Burning, Dysuria Musculoskeletal: reports: Back Pain Neuro: reports: Headache. denies: Seizure, Tremors Psychiatric: reports: Agitated, Anxious Patient History - Patient Medical History Hx Anemia: No Hx Asthma: Yes (on albuterol inhaler in the past) Hx Chronic Obstructive Pulmonary Disease (COPD): No Hx Cancer: No Hx Cardiac Disorders: No Hx Congestive Heart Failure: No Hx Hypertension: No Hx Hypercholesterolemia: No Hx Pacemaker: No HX Cerebrovascular Accident: No Hx Seizures: No Hx Dementia: No Hx Diabetes: No Hx Gastrointestinal Disorders: Yes (Acid reflux) Hx Liver Disease: No Hx Genitourinary Disorders: No Hx Sexually Transmitted Disorders: No Hx Renal Disease (ESRD): No Hx Thyroid Disease: No Hx Human Immunodeficiency Virus (HIV): No (last 2017 negative) Hx Hepatitis C: No Hx Depression: Yes Hx Suicide Attempt: No Hx Bipolar Disorder: Yes (no med,does not want to see psychiatrist) Hx Schizophrenia: No - Patient Surgical History Past Surgical History: Yes Hx Neurologic Surgery: No Hx Cataract Extraction: No Hx Cardiac Surgery: No Hx Lung Surgery: No Hx Breast Surgery: No Hx Breast Biopsy: No Hx Abdominal Surgery: No Hx Appendectomy: No Hx Cholecystectomy: No Hx Genitourinary Surgery: No Hx Section: No Hx Orthopedic Surgery: Yes (L shoulder sx in 2014 L ankle sx in 2010) Anesthesia Reaction: No - PPD History Date: 11/12/18 Results: not reading - Reproductive History Last Menstrual Period: 05/16/11 - Smoking Cessation Smoking history: Current every day smoker Have you smoked in the past 12 months: Yes Aproximately how many cigarettes per day: 10 Hx Chewing Tobacco Use: No Initiated information on smoking cessation: No - Substance & Tx. History Hx Alcohol Use: No - Substances abused Heroin Substance route: Inhalation Frequency: Daily Amount used: 3 BUNDLES Age of first use: 43 Date of last use: 03/20/19 Cocaine Substance route: Inhalation Frequency: 3-6 times per week Amount used: $30-40 Age of first use: 26 Date of last use: 03/18/19 Marijuana/Hashish Substance route: Smoking Frequency: Daily Amount used: 1-2 blunts/day Age of first use: 19 Date of last use: 03/15/19 Family Disease History - Family Disease History Family Disease History: Other: Father (alcohol, d. AIDS 47), Mother (alcohol , d. 55 AIDS ) Admission Physical Exam [facility] - Vital Signs Vital Signs: Vital Signs - 24 hr 03/20/19 03/20/19 11:44 12:11 Temperature 97.1 F L 97.1 F L Pulse Rate 67 67 Respiratory 16 16 Rate Blood Pressure 113/72 113/72 - Physical General Appearance: Yes: Irritable, Anxious HEENTM: Yes: Normocephalic, Nasal Congestion, Other (moderate temporal swelling) Respiratory: Yes: No Respiratory Distress, No Accessory Muscle Use, Wheezing. No: Accessory Muscle Use Neck: Yes: Supple, Trachea in good position Cardiology: Yes: Regular Rhythm, Regular Rate, S1, S2, Systolic Murmur Abdominal: Yes: Soft. No: Distended, Guarding, Rebound, Tenderness Musculoskeletal: Yes: full range of Motion Neurological: Yes: Fully Oriented, Alert Integumentary: Yes: Dry, Warm Breathalyzer - Breathalyzer Breathalyzer: 0 POC Urine test - Test device test lot number: [id number] Expiration date: 04/14/20 - Control test control: Yes Urine Drug Screen - Test Device Lot number: [id number] Expiration date: 12/13/20 - Control Is test valid?: Yes - Results Drug screen NEGATIVE: No Urine drug screen results: THC-Marijuana, DAO-Cocaine, FEN-Fentanyl, MOP-Opiates , OXY-Oxycodone Inpatient Rehab Admission - Rehab Decision to Admit Inpatient rehab admission?: No
--- NOTE | 2019-03-20 12:52 | PN ---
"Teaching Attending Note Name of Resident: Felix Kumar ATTENDING PHYSICIAN STATEMENT I saw and evaluated the patient. I reviewed the resident's note and discussed the case with the resident. I agree with the resident's findings and plan as documented. SUBJECTIVE:53 y.o. female pt here requesting detox from heroin use , claims 30 bags/day via inhalation, denies IVDU , current symptoms as above . Other illicits : cocaine , cannabis admits to tobacco use . PMHX : asthma , OA , chronic LBP , bipolar d/o , depression , denies SI / HI OBJECTIVE: anxious , irritable . This report was requested by: Mildred Byrnes | Reference #: [id number] Others' Prescriptions Patient Name: Kadie Mayes Date: 1965 Address: [address] [place] [address] [address] [place] [address] Sex: Female Rx Written Rx Dispensed Drug Quantity Days Supply Prescriber Name 05/06/2018 05/14/2018 diazepam 2 mg tablet 4 2 Jorden Bustamante W Angela Stroe | Reference #: [id number] Prescriptions Dispensed in [place] Others' Prescriptions Patient Name: KADIE MAYES Date: 1965 Address: [address] [place] [address] [address] [place] [address] Sex: Female Rx Written Rx Dispensed Drug Strength Quantity Days Supply Prescriber Name 02/04/2017 02/04/2017 OXYCODONE-ACETAMINOPHEN 5-325 10.0 5 WILLIAM CORREA ERIC ASSESSMENT AND PLAN: OUD - Methadone detox ."
[2019-03-20] MEDS ORDERED: MAG HYDROX/AL HYDROX/SIMETH 30 ML UNIT-DOSE CUP PO PRN (13:10)
[2019-03-20] MEDS ORDERED: BISMUTH SUBSALICYLATE 524 MG/30 ML UD PO PRN (13:10)
[2019-03-20] MEDS ORDERED: MELATONIN 5 MG TABLETS PO PRN (13:10)
[2019-03-20] MEDS ORDERED: ONDANSETRON *ODT* 4 MG TABLET SL PRN (13:10)
[2019-03-20] MEDS ORDERED: ACETAMINOPHEN 325 MG TABLET (FP) PO PRN ×2 (13:10)
[2019-03-20] MEDS ORDERED: IBUPROFEN 400 MG TABLET (FP) PO PRN (13:10)
[2019-03-20] MEDS ORDERED: MAGNESIUM HYDROX 2400MG/30ML ORAL SUSPENSION 30 ML CUP PO PRN (13:10)
[2019-03-20] MEDS ORDERED: cloNIDine HCL 0.1 MG TABLET PO PRN (13:10)
[2019-03-20] MEDS ORDERED: MAGNESIUM CITRATE 300 ML BOTTLE PO PRN (13:10)
[2019-03-20] MEDS ORDERED: MENTHOL/PHENOL 1 EACH UD MM PRN (13:10)
[2019-03-20] MEDS ORDERED: diazePAM 2 MG TABLET PO PRN (13:17)
[2019-03-20] MEDS ORDERED: ALBUTEROL SO4 2.5/IPRATROPIUM 0.5 INH SOL 3 ML VIAL.NEB. NEB PRN (13:18)
[2019-03-20] MEDS ORDERED: METHADONE HCL 10 MG TABLET (FOR DETOX USE ONLY) PO ONE (14:00)
[2019-03-20] MEDS: hydrOXYzine PAMOATE 25 MG CAPSULE (FP) PO PRN (14:05)
[2019-03-20] MEDS: THIAMINE HCL 100 MG TABLET (FP) PO SCH (22:32)
[2019-03-21] MEDS: hydrOXYzine PAMOATE 25 MG CAPSULE (FP) PO PRN ×2 (03:07→12:16)
[2019-03-21] MEDS: METHOCARBAMOL 500 MG TABLET PO PRN ×2 (03:07→12:16)
[2019-03-21] MEDS ORDERED: METHADONE HCL 10 MG TABLET (FOR DETOX USE ONLY) ONE (09:08)
[2019-03-21] MEDS ORDERED: METHADONE HCL 5 MG TABLET (FOR DETOX USE ONLY) ONE (09:09)
[2019-03-21] MEDS ORDERED: METHADONE (DETOX) 20 MG, METHADONE (DETOX) 5 MG PO ONE (10:00)
--- NOTE | 2019-03-21 10:13 | CONSULT ---
[facility] Psychiatric Consult - Data Date of interview: 03/21/19 Psychiatric History: Patient was approached at bedside. She was very hostile towards procedure writer saying:"I don't want to talk to no psychiatrist"
[2019-03-21] MEDS: NICOTINE 14 MG/24 HOURS TOPICAL PATCH TD SCH (10:16)
[2019-03-21] MEDS: PRENATAL VITAMINS W/ FOLIC ACID TABLET (FP) PO SCH (10:16)
[2019-03-21 11:56] LABS: HEMATOCRIT 40.5 % (32.4-45.2); HEMOGLOBIN 13.5 GM/dL (10.7-15.3); MCH 29.2 pg (25.7-33.7); MCHC 33.3 g/dl (32.0-36.0); MEAN CELL VOLUME 87.8 fl (80-96); MEAN PLT VOLUME 8.5 fl (7.5-11.1); PLATELET COUNT 181 K/MM3 (134-434); RBC 4.61 M/mm3 (3.60-5.2); RDW 14.1 % (11.6-15.6)
[2019-03-21 12:09] LABS: ALBUMIN 2.8 g/dl (3.4-5.0); BILIRUBIN,TOTAL 0.2 mg/dL (0.2-1); BLOOD UREA NITROGEN 15.5 mg/dL (7-18); CALCIUM 8.7 mg/dL (8.5-10.1); CREATININE 0.6 mg/dL (0.55-1.3); POTASSIUM 4.3 mmol/L (3.5-5.1)
--- NOTE | 2019-03-21 12:18 | EKG ---
Test Reason : Blood Pressure : / mmHG Vent. Rate : 060 BPM Atrial Rate : 060 BPM P-R Int : 146 ms QRS Dur : 088 ms QT Int : 444 ms P-R-T Axes : 017 065 041 degrees QTc Int : 444 ms NORMAL SINUS RHYTHM NORMAL ECG WHEN COMPARED WITH ECG OF 22-APR-2018 13:52, NONSPECIFIC T WAVE ABNORMALITY NO LONGER EVIDENT IN ANTERIOR LEADS Confirmed by ALYCIA GALLARDO MD ([id number]) on 03/21/2019 12:18:33 PM Referred By: Confirmed By:ALYCIA GALLARDO MD
--- NOTE | 2019-03-21 13:39 | PN ---
[facility] COWS - Scale Resting Pulse: 0= [place] 80 or Below Sweatin= Chills/Flushing Restless Observation: 1= Difficult to Sit Still Pupil Size: 0= Normal to Room Light Bone or Joint Aches: 2= Severe Diffuse Aches Runny Nose/ Eye Tearin= Nasal Congestion GI Upset > 30mins: 0= None Tremor Observation of Outstretched Hands: 2= Slight Tremor Visible Yawning Observation: 1= 1-2x During Session Anxiety or Irritability: 2=Irritable/Anxious Goose Flesh Skin: 0=Smooth Skin COWS Score: 10 BHS Progress Note (SOAP) Subjective: interrupted sleep body aches sweats agitation Objective: 03/21/19 13:37 Vital Signs Temperature 97.7 F 03/21/19 09:36 Pulse Rate 58 L 03/21/19 09:36 Respiratory Rate 16 03/21/19 09:36 Blood Pressure 121/67 03/21/19 09:36 O2 Sat by Pulse Oximetry (%) Laboratory Tests 03/20/19 03/21/19 03/21/19 13:26 08:30 08:30 WBC 7.0 RBC 4.61 Hgb 13.5 Hct 40.5 MCV 87.8 MCH 29.2 MCHC 33.3 RDW 14.1 Plt Count 181 MPV 8.5 Sodium 142 Potassium 4.3 Chloride 109 H Carbon Dioxide 30 Anion Gap 3 L BUN 15.5 Creatinine 0.6 Est GFR (CKD-EPI)AfAm 121.46 Est GFR (CKD-EPI)NonAf 104.80 Random Glucose 80 Calcium 8.7 Total Bilirubin 0.2 AST 12 L ALT 12 L Alkaline Phosphatase 78 Total Protein 6.0 L Albumin 2.8 L POC Urine HCG, Qual Negative RPR Titer 03/21/19 08:30 WBC RBC Hgb Hct MCV MCH MCHC RDW Plt Count MPV Sodium Potassium Chloride Carbon Dioxide Anion Gap BUN Creatinine Est GFR (CKD-EPI)AfAm Est GFR (CKD-EPI)NonAf Random Glucose Calcium Total Bilirubin AST ALT Alkaline Phosphatase Total Protein Albumin POC Urine HCG, Qual RPR Titer Nonreactive labs noted aaox3 ambulating no acute distress Assessment: 03/21/19 13:38 withdrawal sx Plan: continue detox increase fluids trazadone 50mg qhs
--- NOTE | 2019-03-21 13:52 | PN ---
S Progress Note Note: typewriters functional tester witnessed pt bump her left toe on her bedroom door. left foot assessed, noted left big toe with a small abrasion. pt is able to move her toes freely, no bruising noted. bacitracin oint ordered.
[2019-03-21] MEDS: diazePAM 5 MG TABLET PO PRN (14:20)
[2019-03-21] MEDS: BACITRACIN 15 GM TUBE TOPICAL OINTMENT TP SCH (15:26)
[2019-03-21] MEDS ORDERED: traZODone HCL 50 MG TABLET (FP) PO SCH (22:00)
[2019-03-21] MEDS: GABAPENTIN 100 MG CAPSULE (FP) PO SCH (22:48)
[2019-03-21] MEDS: THIAMINE HCL 100 MG TABLET (FP) PO SCH (22:48)
[2019-03-22] MEDS: METHOCARBAMOL 500 MG TABLET PO PRN (00:59)
[2019-03-22] MEDS: diazePAM 5 MG TABLET PO PRN ×2 (00:59→10:24)
[2019-03-22] MEDS: GABAPENTIN 100 MG CAPSULE (FP) PO SCH (05:25)
[2019-03-22 09:20] VITALS: BP 108/63; PULSE 56; TEMP 97.7
[2019-03-22] MEDS ORDERED: METHADONE HCL 10 MG TABLET (FOR DETOX USE ONLY) PO ONE (10:00)
[2019-03-22] MEDS: PRENATAL VITAMINS W/ FOLIC ACID TABLET (FP) PO SCH (10:02)
[2019-03-22] MEDS: NICOTINE 14 MG/24 HOURS TOPICAL PATCH TD SCH (10:02)
[2019-03-22] MEDS: BACITRACIN 15 GM TUBE TOPICAL OINTMENT TP SCH (10:02)
--- NOTE | 2019-03-22 13:43 | DS ---
[facility] Detox Discharge Summary Admission Date: 03/20/19 Discharge Date: 03/22/19 (Left AMA) - History Present History: Cannabis Dependence, Cocaine Dependence, Opioid Dependence Additional Comments: Pt left AMA. Pt did not complete her detox protocol. Pt states, "i have to go and do something". An attempt to let pt stay and complete her protocol failed. Pt is encouraged to follow-up with an outpatient CD program and also to follow- up with her PMD. Pt verbalized understanding. Pertinent Past History: H/o asthma, GERD, cannabis, cocaine, and heroin use disorder. - Physical Exam Results Vital Signs: Vital Signs Temperature 97.7 F 03/22/19 09:19 Pulse Rate 56 L 03/22/19 09:19 Respiratory Rate 16 03/22/19 09:19 Blood Pressure 108/63 03/22/19 09:19 O2 Sat by Pulse Oximetry (%) Vital Signs 03/22/19 03/22/19 06:00 09:19 Temperature 97.0 F L 97.7 F Pulse Rate 58 L 56 L Respiratory 18 16 Rate Blood Pressure 130/71 108/63 Lab Results WBC 7.0 K/mm3 (4.0-10.0) 03/21/19 08:30 RBC 4.61 M/mm3 (3.60-5.2) 03/21/19 08:30 Hgb 13.5 GM/dL (10.7-15.3) 03/21/19 08:30 Hct 40.5 % (32.4-45.2) 03/21/19 08:30 MCV 87.8 fl (80-96) 03/21/19 08:30 MCHC 33.3 g/dl (32.0-36.0) 03/21/19 08:30 RDW 14.1 % (11.6-15.6) 03/21/19 08:30 Plt Count 181 K/MM3 (134-434) 03/21/19 08:30 Sodium 142 mmol/L (136-145) 03/21/19 08:30 Potassium 4.3 mmol/L (3.5-5.1) 03/21/19 08:30 Chloride 109 mmol/L (98-107) H 03/21/19 08:30 Carbon Dioxide 30 mmol/L (21-32) 03/21/19 08:30 Anion Gap 3 MMOL/L (8-16) L 03/21/19 08:30 BUN 15.5 mg/dL (7-18) 03/21/19 08:30 Creatinine 0.6 mg/dL (0.55-1.3) 03/21/19 08:30 Random Glucose 80 mg/dL (74-106) 03/21/19 08:30 Calcium 8.7 mg/dL (8.5-10.1) 03/21/19 08:30 Labs noted. Pertinent Admission Physical Exam Findings: withdrawal symptoms. - Treatment Hospital Course: Detox Protocol Followed - Medication Discharge Medications: Ambulatory Orders NK [No Known Home Medication] 03/20/19 - Diagnosis (1) Alcohol dependence with uncomplicated withdrawal Status: Acute (2) Cocaine dependence Status: Acute Qualifiers: Substance use status: uncomplicated Qualified Code(s): F14.20 - Cocaine dependence, uncomplicated (3) Hyperglycemia Status: Acute (4) Low back pain Status: Acute (5) Asthma Status: Chronic Qualifiers: Asthma severity: mild Asthma persistence: intermittent Asthma complication type: with status asthmaticus Qualified Code(s): J45.22 - Mild intermittent asthma with status asthmaticus (6) Cannabis dependence Status: Chronic (7) GERD (gastroesophageal reflux disease) Status: Chronic Qualifiers: Esophagitis presence: without esophagitis Qualified Code(s): K21.9 - Gastro -esophageal reflux disease without esophagitis - AMA Did Patient Leave Against Medical Advice: Yes [facility] COWS - Scale Resting Pulse: 0= [place] 80 or Below Sweatin= Chills/Flushing Restless Observation: 1= Difficult to Sit Still Pupil Size: 0= Normal to Room Light Bone or Joint Aches: 4=Acute Joint/Muscle Pain Runny Nose/ Eye Tearin= None GI Upset > 30mins: 0= None Tremor Observation of Outstretched Hands: 0= None Yawning Observation: 1= 1-2x During Session Anxiety or Irritability: 2=Irritable/Anxious Goose Flesh Skin: 0=Smooth Skin COWS Score: 9
[2019-03-23] MEDS ORDERED: METHADONE (DETOX) 10 MG, METHADONE (DETOX) 5 MG PO ONE (10:00)
[2019-03-24] MEDS ORDERED: METHADONE HCL 10 MG TABLET (FOR DETOX USE ONLY) PO ONE (10:00)
[2019-03-25] MEDS ORDERED: METHADONE HCL 5 MG TABLET (FOR DETOX USE ONLY) PO ONE (06:00)
== END 2019-03-22 11:21 | disposition left against medical advice (07) | DRG 770 ==
LOC: YASAS 10:29 → Y6N 13:17
PROVIDERS: ADMIT Surgery; ATTEND Surgery
PROC: HZ2ZZZZ Detoxification Services for Substance Abuse Treatment (ICD-10-PCS; principal; 2019-03-20)
DX: F11.23 Opioid dependence with withdrawal (principal); F14.20 Cocaine dependence, uncomplicated; F12.20 Cannabis dependence, uncomplicated; F17.210 Nicotine dependence, cigarettes, uncomplicated; K21.9 Gastro-esophageal reflux disease without esophagitis; J45.22 Mild intermittent asthma with status asthmaticus; R73.9 Hyperglycemia, unspecified; M54.5 Low back pain; M54.2 Cervicalgia; G89.29 Other chronic pain; S90.412A Abrasion, left great toe, initial encounter; W22.8XXA Striking against or struck by other objects, initial encounter; Y93.9 Activity, unspecified; Y92.239 Unspecified place in hospital as the place of occurrence of the external cause
CPT/HCPCS: 36415; 80053; 81025; 85027; 86480; 86593; 87389; 93005; 93010; J0735